=== PATIENT | female | born 1935 | race African-American/Black ===

== ENCOUNTER 2023-09-08 20:13 | Inpatient (IN) | payer MEDICARE, OTHER, SELFPAY ==
--- NOTE | ~2023-09-08 | CT_ITS ---
Clinical Indication: Hypoxia CT Scan of the Chest with Contrast: Technique: Contiguous sections were acquired throughout the chest after intravenous administration of 100 cc of Omnipaque 350. Dose reduction technique was used on this scan by utilizing automated expos ure control and iterative reconstruction technique. The dose-length product (DLP) was 181.01 mGy-cm. Findings: There is no evidence of any significant mediastinal, hilar or axillary lymphadenopathy. There is no f illing defect in the pulmonary arterial tree to suggest pulmonary embolus. There is no evidence of ao rtic aneurysm. There is no evidence of pleural or pericardial effusion. The lungs are clear, aside from mild dependent atelectatic changes. Images through the upper abdomen reveal no abnormalities. Impression: No evidence of pulmonary embolus. Mild dependent atelectatic changes. Reviewed, dictated and finalized at [facility]. Impression: No evidence of pulmonary embolus. Mild dependent atelectatic changes.
--- NOTE | ~2023-09-08 | XR_ITS ---
Portable chest x-ray Comparison: None Clinical History: Hypoxia Findings: Central congestive change present. Possible minimal bibasilar pulmonary edema. Cardiomedi astinal silhouette is prominent, status post CABG, valve replacement, with pacemaker device. Bones an d soft tissues are unremarkable. Impression: Central congestive change and possible minimal bibasilar pulmonary edema. Cardiomegaly, status post CABG, valve replacement, with pacemaker device. Reviewed, dictated and finalized at [facility]. Impression: Central congestive change and possible minimal bibasilar pulmonary edema. Cardiomegaly, status post CABG, valve replacement, with pacemaker device.
--- NOTE | ~2023-09-08 | CT_ITS ---
Non-contrast CT scan of the Abdomen and Pelvis Clinical indication: Right lower quadrant pain Technique: 2.5 mm axial scans were obtained through the abdomen and pelvis without intravenous or or al contrast. Dose reduction technique was used on this scan by utilizing automated exposure control a nd iterative reconstruction technique. The dose-length product (DLP) was 348.50 mGy-cm. Findings: Images through the lung bases reveal cardiomegaly with pacemaker device. Minimal right ple ural fluid present, with mild bibasilar atelectatic change There is no evidence of renal or ureteral calculi. The kidneys and the ureters are nondilated. Right renal cysts are present. The liver, spleen, pancreas, gallbladder, and adrenals appear normal.. There are atherosclerotic calcifications of the aorta. There is also extensive atherosclerotic calcif ication of the SMA and iliac vessels. There is no evidence of bowel obstruction. There is wall thickening and mild pericolic inflammatory c hange involving the cecum and proximal ascending colon. Appendix is nondilated. Images through the pelvis were performed. There is no evidence of ascites or lymphadenopathy. Urinary bladder unremarkable. No pelvic mass seen. No ascites. Impression: Wall thickening and mild pericolic inflammatory change of the cecum and proximal ascending colon. Carmelina gnostic considerations include colitis versus neoplasm. Correlate clinically. Consider colonoscopy as indicated. Extensive atherosclerotic disease, as above. Reviewed, dictated and finalized at [facility]. Impression: Wall thickening and mild pericolic inflammatory change of the cecum and proxima l ascending colon. Diagnostic considerations include colitis versus neoplasm. C orrelate clinically. Consider colonoscopy as indicated. Extensive atherosclerotic disease, as above.
[2023-09-08 20:15] VITALS: BP 123/62; PULSE 83; RESP 18; O2SAT 93
[2023-09-08 21:20] LABS: Basophils Absolute Auto 0.1 K/mm3 (0.0-0.1); Basophils Percent Auto 0.3 % (0.2-1.2); Hematocrit 34.1 % (37.0-47.0); Hemoglobin 11.3 g/dL (12.0-15.0); Immature Granulocyte Percent A 0.4 % (0-0.5); Lymphocytes Percent Auto 4.1 % (18.3-44.2); Mean Corpuscular HGB Conc 33.1 g/dl (32-36); Mean Corpuscular Hemoglobin 26.3 pg (26-34); Mean Corpuscular Volume 79.3 fl (80-100); Mean Platelet Volume 10.1 fl (7.4-10.4); Monocytes Absolute Auto 1.6 K/mm3 (0.1-0.6); Monocytes Percent Auto 6.6 % (2.6-8.5); Neutrophils Absolute Auto 21.7 K/mm3 (1.3-6.7); Neutrophils Percent Auto 88.6 % (45.5-73.1); Nucleated Red Blood Cells Perc 0.1 % (0.0-0.2); Platelet Count Result 307 k/mm3 (150-375); Red Cell Distribution Width 19.7 % (11.5-14.5); White Blood Count 24.5 K/mm3 (4.5-10.0)
[2023-09-08 21:33] LABS: Alanine Aminotransferase 59 U/L (6-35); Albumin Level 4.3 g/dL (3.5-5.1); Alkaline Phosphatase 122 U/L (38-126); Anion Gap 15 mmol/L (4-12); Aspartate Amino Transferase 52 U/L (14-36); Bilirubin,Total 0.7 mg/dL (0.2-1.3); Blood Urea Nitrogen 41 mg/dL (7-17); Calcium 9.9 mg/dL (8.4-10.2); Carbon Dioxide 21 mmol/L (22-30); Chloride 100 mmol/L (98-107); Estimated Glomerular Filt Rate 37; Glucose 121 mg/dL (65-110); Lipase 24 U/L (23-300); Potassium 4.5 mmol/L (3.4-5.0); Sodium 136 mmol/L (137-145)
[2023-09-08 21:38] LABS: Platelet Estimate Adequate (Adequate)
[2023-09-08 21:39] LABS: Ovalocytes 1+; Target Cells 1+
[2023-09-08 21:40] LABS: Schistocytes Rare
[2023-09-08 21:43] LABS: Appearance Urine Turbid (Clear); Bacteria Urine 4+ /hpf; Bilirubin Urine Negative (Negative); Blood Urine Negative (Negative); Color Urine Yellow (Yellow); Glucose Urine UA Negative (Negative); Ketones Urine Negative (Negative); Leukocyte Esterase Ur 2+ LEU/UL (Negative); Need Manual Microscopic Reviewed; Nitrate Urine Negative (Negative); Non Pathogenic Casts >20; Protein Urine Trace mg/dL (Negative); Specific Grav Ur 1.021 (1.001-1.035); Squamous Epithelial Cell Urine Many /hpf (Few); WBC Urine >100 /hpf (0-3)
[2023-09-08 21:44] LABS: Add Urine Microscopic? YES
--- NOTE | 2023-09-08 22:45 | ED.ABDPAIN ---
HPI - Abdominal Pain General Chief Complaint: Abdominal Pain Stated Complaint: abd pain/abnormal labs Time Seen by Provider: 09/08/23 20:20 History of Present Illness HPI narrative: 79-year-old female presents to the emergency department for evaluation from [facility] for evaluation for tachycardia and hypotension, patient has been complaining of right lower quadrant pain for the last 2 days. Patient had outpatient labs showing leukocytosis. Related Data Home Medications Medication Instructions Recorded Confirmed acetaminophen 500 mg tablet 1,000 mg PO Q6H PRN Pain (Scale 09/03/23 09/09/23 Score 1-3) aspirin 81 mg tablet,delayed 81 mg PO BID 09/03/23 09/09/23 release atorvastatin 40 mg tablet 40 mg PO DAILY 09/03/23 09/09/23 duloxetine 20 mg capsule,delayed 20 mg PO DAILY 09/03/23 09/09/23 release furosemide 20 mg tablet 20 mg PO DAILY 09/03/23 09/09/23 hydralazine 100 mg tablet 100 mg PO BID 09/03/23 09/09/23 levothyroxine 100 mcg tablet 100 mcg PO DAILY 09/03/23 09/09/23 (Synthroid) methocarbamol 500 mg tablet 500 mg PO TID 09/03/23 09/09/23 metoprolol succinate 50 mg 50 mg PO DAILY 09/03/23 09/09/23 tablet,extended release 24 hr oxycodone 5 mg tablet 5 mg PO Q4H PRN Pain (Scale Score 09/03/23 09/09/23 7-10) sennosides 8.6 mg-docusate sodium 2 tablet PO BID 09/03/23 09/09/23 50 mg tablet (Senna-S) Allergies Allergy/AdvReac Type Severity Reaction Status Date / Time No Known Allergies Allergy Verified 09/10/23 13:37 Review of Systems Review of Systems: All systems reviewed & are unremarkable except as noted in HPI and below PMFSH Past Medical History Medical History (Updated 09/11/23 @ 18:32 by Candido Bryan MD) Ischemic colitis Nausea and vomiting in adult Social History Social History Smoking status: Never smoker Tobacco type: cigarettes Second hand tobacco smoke exposure: No Alcohol intake: never Substance use: never Substance use type: does not use Do You Feel Safe in your Home?: Yes Lack of Transportation: No Lack of Food: Never True Current Housing: I Have Housing Concerned About Future Housing: No Difficulty Paying Gas/Electric Bills: No Difficulty Paying for Meds: No Currently Unemployed: No Education: High School Diploma/GED Difficulty w/ Childcare or Family Care: No Spiritual care concerns: No Exam Narrative: APPEARANCE: Well appearing, no pain, no distress, well-nourished. HEAD: normocephalic, atraumatic. EYES: PERRLA/EOMI, conjunctivae clear. NOSE: Normal no drainage EARS:TMS clear with good light reflex. THROAT: Pharynx clear, no exudate. NECK: Supple. No adenopathy, no masses. RESPIRATORY: Airway patent, respirations nonlabored. Clear to auscultation bilaterally, no rales, rhonchi, wheezing. CARDIOVASCULAR: Regular rate and rhythm without murmurs rubs or gallops. ABDOMINAL: Right lower quadrant tenderness to palpate MUSCULOSKELETAL: Moves all extremities. Strength/ROM intact, No edema, No calf tenderness. NEURO: Alert. Cranial nerves II through XII intact. Grossly intact SKIN: Warm, dry. Normal Color Course Vital Signs Vital signs: Vital Signs Pulse Rate 83 09/08/23 20:15 Respiratory Rate 18 09/08/23 20:15 Blood Pressure 123/62 09/08/23 20:15 Pulse Oximetry 93 09/08/23 20:15 Oxygen Delivery Room Air 09/08/23 20:15 Temperature 98.0 F 09/13/23 12:00 Pulse Rate 72 09/13/23 12:00 Respiratory Rate 16 09/13/23 12:00 Blood Pressure 142/64 H 09/13/23 12:00 Pulse Oximetry 97 09/13/23 12:00 Oxygen Delivery Nasal Cannula 09/13/23 09:20 Oxygen Flow Rate 2 09/13/23 09:20 Fraction of Inspired Oxygen 28 09/10/23 19:40 MDM - Abdominal Pain MDM Narrative Medical decision making narrative: 88-year-old female presents emergency department for evaluation for low abdominal pain. Patient had an elevated
[2023-09-08 22:47] VITALS: BP 99/58; PULSE 86; RESP 14; O2SAT 96
[2023-09-08 23:09] VITALS: BP 96/51; PULSE 90; RESP 14; O2SAT 84
[2023-09-08 23:10] VITALS: O2SAT 92
[2023-09-08 23:23] VITALS: BP 103/60
[2023-09-09] VITALS (15 sets, daily range): BP systolic 78–118; BP diastolic 41–61; PULSE 70–91; RESP 16–26; TEMP 36.6–36.9; O2SAT 91–99; BMI 28.3
--- NOTE | 2023-09-09 01:11 | PM.IMHP ---
H&P: HPI History of Present Illness Date/Time: 09/09/23 01:11 Chief Complaint: low blood pressure Narrative: This is an 87 yo female with PMHx significant for hypertension, hypothyroidism, right lower extremity bimalleolar fracture status post splinting. Patient comes from rehabilitation due to tachycardia and hypotension and right lower quadrant pain. Patient here denies any complaint, denies fevers, rigors, chills, nausea, vomiting, constipation, diarrhea, night sweats, shortness of breath, cough, sputum production, no pain. Preliminary workup was significant for CBC with a leukocyte count of 24,000 urinalysis showed greater than 100 WBCs per high-power field preliminary report on CT showed area of colitis. Non-contrast CT scan of the Abdomen and Pelvis Clinical indication: Right lower quadrant pain Technique: 2.5 mm axial scans were obtained through the abdomen and pelvis without intravenous or oral contrast. Dose reduction technique was used on this scan by utilizing automated exposure control and iterative reconstruction technique. The dose-length product (DLP) was 348.50 mGy-cm. Findings: Images through the lung bases reveal cardiomegaly with pacemaker device. Minimal right pleural fluid present, with mild bibasilar atelectatic change There is no evidence of renal or ureteral calculi. The kidneys and the ureters are nondilated. Right renal cysts are present. The liver, spleen, pancreas, gallbladder, and adrenals appear normal.. There are atherosclerotic calcifications of the aorta. There is also extensive atherosclerotic calcification of the SMA and iliac vessels. There is no evidence of bowel obstruction. There is wall thickening and mild pericolic inflammatory change involving the cecum and proximal ascending colon. Appendix is nondilated. Images through the pelvis were performed. There is no evidence of ascites or lymphadenopathy. Urinary bladder unremarkable. No pelvic mass seen. No ascites. Impression: Wall thickening and mild pericolic inflammatory change of the cecum and proximal ascending colon. Diagnostic considerations include colitis versus neoplasm. Correlate clinically. Consider colonoscopy as indicated. Extensive atherosclerotic disease, as above. Portable chest x-ray Comparison: None Clinical History: Hypoxia Findings: Central congestive change present. Possible minimal bibasilar pulmonary edema. Cardiomediastinal silhouette is prominent, status post CABG, valve replacement, with pacemaker device. Bones and soft tissues are unremarkable. Impression: Central congestive change and possible minimal bibasilar pulmonary edema. Cardiomegaly, status post CABG, valve replacement, with pacemaker device. Review of Systems Review of Systems: Hypotension and tachycardia however patient denies any complaints Constitutional: Constitutional: Denies chills, Denies fever(s), Denies night sweats and Denies poor appetite Eyes: Eyes: Denies change in vision ENT: Denies dysphagia and Denies odynophagia Cardiovascular: Cardiovascular: Denies chest pain Respiratory: Respiratory: Denies chest congestion and Denies cough Gastrointestinal: Gastrointestinal: Reports abdominal pain (Right lower quadrant), Denies diarrhea, Denies nausea and Denies vomiting Genitourinary: Genitourinary: Denies dysuria Musculoskeletal: Musculoskeletal: Reports other (Right lower extremity ankle fracture) Integumentary/Breasts: Skin/Breast: Denies rash Neurologic: Denies focal weakness and Denies Sensory deficit (Neuro) Psychiatric: Psychiatric: Reports no additional psychiatric complaints and Reports as per HPI Endocrine: Endocrine: Denies cold intolerance, Denies heat intolerance, Denies polyphagia, Denies polydipsia, Denies polyuria and Denies palpitations Hematologic/Lymphatic: Hematologic/Lymphatic: Reports no additional hematologic/lymphatic complaints and Reports as per HPI Allergic/Immunologic: Allergic/Imm
[2023-09-09] MEDS: PIPERACILLIN/TAZ 2.25G/NS 50ML 2.25 GM/50 ML BAG IVPB ×3 (01:20→17:11)
[2023-09-09] MEDS: SODIUM CHLORIDE 0.9% IV 1,000 ML 999 ML IV CONT ×3 (01:52→10:55)
[2023-09-09] MEDS: LEVOTHYROXINE SODIUM 100 MCG TABLET PO (06:10)
--- NOTE | 2023-09-09 07:47 | PM.IMPN ---
Progress Note: A&P Assessment and Plan (1) Acute respiratory failure with hypoxia: Code(s): J96.01 - Acute respiratory failure with hypoxia Status: Acute Assessment and Plan: On arrival to the ED from [facility] patients SpO2 84%. Placed on 2L NC. Baseline room air. Vitals remain stable. - Chest XR: Central congestive change and possible minimal bibasilar pulmonary edema. Cardiomegaly, status post CABG, valve replacement, with pacemaker device. - Likely related to patient receiving sepsis bolus. Will hold on diuresing patient as she has been hypotensive and is going to undergo bowel prep for colonoscopy in the morning. - Monitor SpO2, wean as tolerated to maintain SpO2 > 90% (2) Sepsis: Code(s): A41.9 - Sepsis, unspecified organism Status: Acute Assessment and Plan: Meets SIRS criteria: leukocytosis 24.5, hypotension 96/51, new O2 requirement, FELY - lactic acid: 0.8, however this was after receiving antibiotics and fluids - 30 mL/kg = 1911 ml. 2L NS bolus given. - suspected source: UTI and colitis - blood cultures drawn on 09/08: pending - UA: turbid appearance, 2+ leukocytes, negative nitrates, 3-5 RBC, >100 WBC, many squamous epithelial cells, 4+ bacteria. Possible contaminant given the squamous epithelial cells. - Urine culture: pending - CXR: Central congestive change and possible minimal bibasilar pulmonary edema. Cardiomegaly, status post CABG, valve replacement, with pacemaker device. - CT abdomen/pelvis: Wall thickening and mild pericolic inflammatory change of the cecum and proximal ascending colon. Diagnostic considerations include colitis versus neoplasm. Correlate clinically. Consider colonoscopy as indicated. - Monitor I&Os, vital signs, neuro status and patient is a fall risk - Monitor serum electrolytes, CBC, WBC, temperature curve and follow cultures (3) FELY (acute kidney injury): Code(s): N17.9 - Acute kidney failure, unspecified Status: Acute Assessment and Plan: BUN/Cr 41/1.6 on admission. Baseline unknown, however last admission BUN/Cr 24/1.2. Likely related to underlying infection. - CT abdomen/pelvis: There is no evidence of renal or ureteral calculi. The kidneys and the ureters are nondilated. Right renal cysts are present. - Avoid nephrotoxic medications, continue to hold patients furosemide 20 mg daily - Renally dose medications - Monitor vitals, I/O, patient is fall risk - Monitor CBC and electrolytes (4) Acute UTI: Code(s): N39.0 - Urinary tract infection, site not specified Status: Acute Assessment and Plan: - UA: turbid appearance, 2+ leukocytes, negative nitrates, 3-5 RBC, >100 WBC, many squamous epithelial cells, 4+ bacteria. Possible contaminant given the squamous epithelial cells. - UC obtained on 09/07: pending - No previous micro to be reviewed - started on zosyn 09/08 (5) Colitis: Code(s): K52.9 - Noninfective gastroenteritis and colitis, unspecified Status: Acute Assessment and Plan: Patient endorsing RLQ pain for 2 days prior to admission. - CT abdomen/pelvis: Wall thickening and mild pericolic inflammatory change of the cecum and proximal ascending colon. Diagnostic considerations include colitis versus neoplasm. Correlate clinically. Consider colonoscopy as indicated. - GI consulted Will schedule patient for colonoscopy tomorrow if possible to further evaluate RLQ pain and CT findings of cecal and ascending colon wall thickening and inflammation Bowel prep to start this evening Clear liquid diet today and NPO at midnight Continue supportive care with pain management and antibiotics (6) HTN (hypertension): Code(s): I10 - Essential (primary) hypertension Status: Acute Assessment and Plan: Chronic. During admission patient has been hypotensive likely related to her infection. - Holding hydralazine 100 mg BID, metoprolol 50 mg daily and lasix 20 mg daily - Monitor, will restart medicatio
[2023-09-09] MEDS: ASPIRIN 81 MG ENTERIC TABLET PO ×2 (08:07→17:11)
[2023-09-09] MEDS: ATORVASTATIN 40 MG TABLET PO (08:07)
[2023-09-09] MEDS: DULoxetine HCL 20 MG CAPSULE.DR PO (08:07)
[2023-09-09] MEDS: SENNA/DOCUSATE SODIUM TABLET 2 TAB PO ×2 (08:07→17:10)
[2023-09-09] MEDS: methocarbamoL 500 MG TABLET PO ×3 (08:11→17:10)
[2023-09-09] MEDS: METOPROLOL SUCCINATE EXT REL 50 MG TABCR PO (08:14)
[2023-09-09 08:37] LABS: Basophils Absolute Auto 0.1 K/mm3 (0.0-0.1); Basophils Percent Auto 0.3 % (0.2-1.2); Hematocrit 28.2 % (37.0-47.0); Hemoglobin 9.6 g/dL (12.0-15.0); Immature Granulocyte Absolute 0.14 K/mm3 (0.00-0.031); Immature Granulocyte Percent A 0.6 % (0-0.5); Lymphocytes Absolute Auto 0.98 K/mm3 (0.9-3.2); Mean Corpuscular Hemoglobin 26.7 pg (26-34); Mean Corpuscular Volume 78.3 fl (80-100); Mean Platelet Volume 10.5 fl (7.4-10.4); Monocytes Absolute Auto 1.7 K/mm3 (0.1-0.6); Monocytes Percent Auto 6.8 % (2.6-8.5); Neutrophils Absolute Auto 21.7 K/mm3 (1.3-6.7); Neutrophils Percent Auto 88.3 % (45.5-73.1); Platelet Count Result 273 k/mm3 (150-375); White Blood Count 24.6 K/mm3 (4.5-10.0)
[2023-09-09 08:46] LABS: Lactic Acid Reflex 0.8 mmol/L (0.7-2.0)
[2023-09-09 08:50] LABS: Alanine Aminotransferase 49 U/L (6-35); Albumin Level 3.4 g/dL (3.5-5.1); Alkaline Phosphatase 109 U/L (38-126); Anion Gap 9 mmol/L (4-12); Aspartate Amino Transferase 41 U/L (14-36); Bilirubin,Total 0.7 mg/dL (0.2-1.3); Blood Urea Nitrogen 44 mg/dL (7-17); Calcium 9.3 mg/dL (8.4-10.2); Carbon Dioxide 22 mmol/L (22-30); Chloride 103 mmol/L (98-107); Estimated Glomerular Filt Rate 40; Glucose 104 mg/dL (65-110); Potassium 4.5 mmol/L (3.4-5.0); Sodium 134 mmol/L (137-145)
[2023-09-09] MEDS: ENOXAPARIN 30 MG/0.3 ML SYRINGE SUB-Q (08:50)
[2023-09-09 09:00] LABS: Hypochromasia 1+; Microcytosis 1+ (NORMAL); Platelet Estimate Adequate (Adequate); Schistocytes None Seen; Target Cells 1+
--- NOTE | 2023-09-09 09:38 | P.CONGI_ITS ---
I, Candido Bryan MD, have provided a substantive portion of the care of this patient and discussed the patient with my Nurse Practitioner. I have reviewed any new relevant radiographic and laboratory results including medications. I agree with her documentation as noted below.?I personally performed the medical decision making and much of the history and exam for this encounter. briefly she is here after new onset of rlq pain with leukocytosis, on arrival was hypotensive, found to have UTI and treated as sepsis, CT scan showed possible rt sided colitis but can not rule out malignancy, also had nausea. Started on abx, BP improved, will proceed with colonoscopy to assess Assessment and Plan Assessment and plan (1) RLQ abdominal pain: Code(s): R10.31 - Right lower quadrant pain Status: Acute (2) Abnormal digestive system diagnostic imaging: Code(s): R93.3 - Abnormal findings on diagnostic imaging of other parts of digestive tract Status: Acute (3) Colitis: Code(s): K52.9 - Noninfective gastroenteritis and colitis, unspecified Status: Acute (4) Leukocytosis: Qualifiers: Leukocytosis type: unspecified Qualified Code(s): D72.829 - Elevated white blood cell count, unspecified Code(s): D72.829 - Elevated white blood cell count, unspecified Status: Acute (5) Elevated liver transaminase level: Code(s): R74.01 - Elevation of levels of liver transaminase levels Status: Acute (6) Anemia: Qualifiers: Anemia type: unspecified type Qualified Code(s): D64.9 - Anemia, unspecified Code(s): D64.9 - Anemia, unspecified Status: Acute Plan 1. Right lower quadrant pain/ Abnormal imaging digestive-colitis: Patient has never had a colonoscopy. Family history negative for CRC or IBD. CT abdomen/pelvis without contrast on 09/08/2023 showed wall thickening and mild pericolic inflammatory change of the cecum and proximal ascending colon, with diagnostic considerations including colitis versus neoplasm. Patient reports right lower quadrant pain that started on Saturday (2 days ago), described as a deep inside soreness that is worse with palpation, no change in pain with bowel movements. Patient has not had a bowel movement since being in the hospital. At home patient was using daily stool softeners and having a bowel movement every 1-3 days. * Will schedule patient for colonoscopy tomorrow if possible to further evaluate RLQ pain and CT findings of cecal and ascending colon wall thickening and inflammation * Bowel prep to start this evening * Clear liquid diet today and NPO at midnight * Continue supportive care with pain management and antibiotics 2) Anemia: Patient with microcytic anemia with H&H trending down slowly since yesterday with Hgb 11.6-->9.6. No signs of active GI bleeding to include hematemesis, hematochezia, or melena. patient was on aspirin 81 mg daily prior to admission but denies any other NSAID or anticoagulant use. * colonoscopy tomorrow * primary care team to continue monitoring H&H and transfuse as needed to keep HGB >7 * iron panel, ferritin, B12, and folate ordered. If low supplement 3) Leukocytosis: Likely multifactorial given UTI, sepsis, colitis. WBC's today 24.6. Patient afebrile. * primary care team to continue monitoring in treating * continue antibiotics 4) Elevated liver transaminase: Bilirubin and alkaline phosphatase normal. Transaminase with mild elevation showing AST 41 and ALT 49. No abnormal liver findings on imaging. * continue to monitor,
--- NOTE | 2023-09-09 09:38 | WPDGICN ---
Assessment and Plan Assessment and plan (1) RLQ abdominal pain: Code(s): R10.31 - Right lower quadrant pain Status: Acute (2) Abnormal digestive system diagnostic imaging: Code(s): R93.3 - Abnormal findings on diagnostic imaging of other parts of digestive tract Status: Acute (3) Colitis: Code(s): K52.9 - Noninfective gastroenteritis and colitis, unspecified Status: Acute (4) Leukocytosis: Qualifiers: Leukocytosis type: unspecified Qualified Code(s): D72.829 - Elevated white blood cell count, unspecified Code(s): D72.829 - Elevated white blood cell count, unspecified Status: Acute (5) Elevated liver transaminase level: Code(s): R74.01 - Elevation of levels of liver transaminase levels Status: Acute (6) Anemia: Qualifiers: Anemia type: unspecified type Qualified Code(s): D64.9 - Anemia, unspecified Code(s): D64.9 - Anemia, unspecified Status: Acute Plan 1. Right lower quadrant pain/ Abnormal imaging digestive-colitis: Patient has never had a colonoscopy. Family history negative for CRC or IBD. CT abdomen/pelvis without contrast on 09/08/2023 showed wall thickening and mild pericolic inflammatory change of the cecum and proximal ascending colon, with diagnostic considerations including colitis versus neoplasm. Patient reports right lower quadrant pain that started on Saturday (2 days ago), described as a deep inside soreness that is worse with palpation, no change in pain with bowel movements. Patient has not had a bowel movement since being in the hospital. At home patient was using daily stool softeners and having a bowel movement every 1-3 days. Will schedule patient for colonoscopy tomorrow if possible to further evaluate RLQ pain and CT findings of cecal and ascending colon wall thickening and inflammation Bowel prep to start this evening Clear liquid diet today and NPO at midnight Continue supportive care with pain management and antibiotics 2) Anemia: Patient with microcytic anemia with H&H trending down slowly since yesterday with Hgb 11.6-->9.6. No signs of active GI bleeding to include hematemesis, hematochezia, or melena. patient was on aspirin 81 mg daily prior to admission but denies any other NSAID or anticoagulant use. colonoscopy tomorrow primary care team to continue monitoring H&H and transfuse as needed to keep HGB >7 iron panel, ferritin, B12, and folate ordered. If low supplement 3) Leukocytosis: Likely multifactorial given UTI, sepsis, colitis. WBC's today 24.6. Patient afebrile. primary care team to continue monitoring in treating continue antibiotics 4) Elevated liver transaminase: Bilirubin and alkaline phosphatase normal. Transaminase with mild elevation showing AST 41 and ALT 49. No abnormal liver findings on imaging. continue to monitor, if LFTs increase will order a liver workup Thank you very much for allowing me to share in the care of this very nice patient. This report may have been done utilizing a voice recognition system. Attempts have been made to correct errors. However, there may be uncorrected grammatical, spelling, and recognition errors present. GI Consult Note Consult date/time: 09/09/23 09:38 Reason for consult: Colitis HPI: Alberta Givens is a 87 year old female with a past medical surgical history of hypertension, hypothyroidism, right lower extremity bimalleolar fracture status post splinting she presented to the ER room 09/07/2023 with complaints of right lower quadrant pain. GI consulted for colitis. Patient comes from rehabilitation due to tachycardia and hypotension and right lower quadrant pain. Patient reports right lower quadrant pain started on Saturday. She describes the pain as a deep inside soreness that is generally painful but gets worse when you touch it. Patient denies any change in pain with bowel movement. Denies any nausea,
[2023-09-09 10:13] LABS: Iron 18 ug/dL (37-170)
[2023-09-09 10:22] LABS: Percent Iron Saturation 7 % (20-50)
[2023-09-09] MEDS: BISACODYL 5 MG TABLET EC 20 MG PO (10:35)
--- NOTE | 2023-09-09 10:50 | PC.NURSE ---
Left message for provider- patient blood pressure 80/41 automatic cuff and 78/50 manually. Awaiting orders
[2023-09-09 11:26] LABS: Folic Acid > 20.0 ng/mL (2.76->20); Vitamin B12 > 1000.0 pg/mL (239-931)
[2023-09-09] MEDS: polyethylene glycoL 3350 238 GM BOTTLE PO (17:13)
[2023-09-09] MEDS: MORPHINE SULFATE (*CRX) 2 MG/ML INJ IV PUSH (20:56)
[2023-09-09] MEDS: ONDANSETRON INJ 4 MG/2 ML VIAL IV PUSH (20:56)
[2023-09-09] MEDS: oxyCODONE HCL (*CRX) 5 MG TAB IR PO (21:43)
[2023-09-09] MEDS: ACETAMINOPHEN 500 MG TABLET 1000 MG PO (21:43)
[2023-09-10] VITALS (18 sets, daily range): BP systolic 101–166; BP diastolic 52–94; PULSE 84–95; RESP 15–25; TEMP 36–36.8; O2SAT 92–100
[2023-09-10] MEDS: PIPERACILLIN/TAZ 2.25G/NS 50ML 2.25 GM/50 ML BAG IVPB ×3 (01:00→17:20)
[2023-09-10 05:09] LABS: Basophils Percent Auto 0.1 % (0.2-1.2); Eosinophils Percent Auto 0.1 % (0-4.4); Hematocrit 28.1 % (37.0-47.0); Hemoglobin 9.3 g/dL (12.0-15.0); Immature Granulocyte Absolute 0.15 K/mm3 (0.00-0.031); Immature Granulocyte Percent A 0.7 % (0-0.5); Lymphocytes Absolute Auto 0.98 K/mm3 (0.9-3.2); Lymphocytes Percent Auto 4.7 % (18.3-44.2); Mean Corpuscular HGB Conc 33.1 g/dl (32-36); Mean Corpuscular Hemoglobin 26.5 pg (26-34); Mean Corpuscular Volume 80.1 fl (80-100); Mean Platelet Volume 10.1 fl (7.4-10.4); Monocytes Absolute Auto 1.3 K/mm3 (0.1-0.6); Monocytes Percent Auto 6.1 % (2.6-8.5); Neutrophils Absolute Auto 18.4 K/mm3 (1.3-6.7); Neutrophils Percent Auto 88.3 % (45.5-73.1); Platelet Count Result 254 k/mm3 (150-375); Red Blood Count 3.51 M/mm3 (4.2-5.4); Red Cell Distribution Width 19.3 % (11.5-14.5); White Blood Count 20.9 K/mm3 (4.5-10.0)
[2023-09-10 05:21] LABS: Alanine Aminotransferase 66 U/L (6-35); Albumin Level 3.2 g/dL (3.5-5.1); Alkaline Phosphatase 168 U/L (38-126); Anion Gap 7 mmol/L (4-12); Aspartate Amino Transferase 65 U/L (14-36); Bilirubin,Total 0.7 mg/dL (0.2-1.3); Blood Urea Nitrogen 35 mg/dL (7-17); Calcium 8.9 mg/dL (8.4-10.2); Carbon Dioxide 19 mmol/L (22-30); Chloride 107 mmol/L (98-107); Estimated Glomerular Filt Rate 43; Glucose 136 mg/dL (65-110); Potassium 3.8 mmol/L (3.4-5.0); Sodium 133 mmol/L (137-145)
[2023-09-10 05:32] LABS: Platelet Estimate Increased (Adequate)
[2023-09-10 05:33] LABS: Poikilocytosis 1+
[2023-09-10 05:34] LABS: Anisocytosis 1+; Burr Cells 1+; Hypochromasia 1+; Ovalocytes 1+; Polychromasia 1+; Schistocytes Rare; Target Cells 1+
[2023-09-10] MEDS: MAGNESIUM CITRATE 300 ML BTL PO (06:21)
[2023-09-10] MEDS: LEVOTHYROXINE SODIUM 100 MCG TABLET PO (06:21)
--- NOTE | 2023-09-10 07:15 | PM.IMPN ---
Progress Note: A&P Assessment and Plan (1) Acute respiratory failure with hypoxia: Code(s): J96.01 - Acute respiratory failure with hypoxia Status: Acute Assessment and Plan: On arrival to the ED from [facility] patients SpO2 84%. Placed on 2L NC. Baseline room air. Vitals remain stable. - Chest XR: Central congestive change and possible minimal bibasilar pulmonary edema. Cardiomegaly, status post CABG, valve replacement, with pacemaker device. - Likely related to patient receiving sepsis bolus. Patients blood pressure remains stable. Given lasix 40 mg IV x1. - Monitor SpO2, wean as tolerated to maintain SpO2 > 90% (2) Sepsis: Code(s): A41.9 - Sepsis, unspecified organism Status: Acute Assessment and Plan: Meets SIRS criteria: leukocytosis 24.5, hypotension 96/51, new O2 requirement, FELY - lactic acid: 0.8, however this was after receiving antibiotics and fluids - 30 mL/kg = 1911 ml. 2L NS bolus given. - suspected source: UTI and colitis - blood cultures drawn on 09/08: NGTD - UA: turbid appearance, 2+ leukocytes, negative nitrates, 3-5 RBC, >100 WBC, many squamous epithelial cells, 4+ bacteria. Possible contaminant given the squamous epithelial cells. - Urine culture: pending - CXR: Central congestive change and possible minimal bibasilar pulmonary edema. Cardiomegaly, status post CABG, valve replacement, with pacemaker device. - CT abdomen/pelvis: Wall thickening and mild pericolic inflammatory change of the cecum and proximal ascending colon. Diagnostic considerations include colitis versus neoplasm. Correlate clinically. Consider colonoscopy as indicated. - Monitor I&Os, vital signs, neuro status and patient is a fall risk - Monitor serum electrolytes, CBC, WBC, temperature curve and follow cultures (3) FELY (acute kidney injury): Code(s): N17.9 - Acute kidney failure, unspecified Status: Acute Assessment and Plan: BUN/Cr 41/1.6 on admission. Baseline unknown, however last admission BUN/Cr 24/1.2. Likely related to underlying infection. - CT abdomen/pelvis: There is no evidence of renal or ureteral calculi. The kidneys and the ureters are nondilated. Right renal cysts are present. - Avoid nephrotoxic medications, continue to hold patients furosemide 20 mg daily - Renally dose medications - Monitor vitals, I/O, patient is fall risk - Monitor CBC and electrolytes (4) Acute UTI: Code(s): N39.0 - Urinary tract infection, site not specified Status: Acute Assessment and Plan: - UA: turbid appearance, 2+ leukocytes, negative nitrates, 3-5 RBC, >100 WBC, many squamous epithelial cells, 4+ bacteria. Possible contaminant given the squamous epithelial cells. - UC obtained on 09/07: pending - No previous micro to be reviewed - started on zosyn 09/08 (5) Colitis: Code(s): K52.9 - Noninfective gastroenteritis and colitis, unspecified Status: Acute Assessment and Plan: Patient endorsing RLQ pain for 2 days prior to admission. - CT abdomen/pelvis: Wall thickening and mild pericolic inflammatory change of the cecum and proximal ascending colon. Diagnostic considerations include colitis versus neoplasm. Correlate clinically. Consider colonoscopy as indicated. - GI consulted Patient scheduled for colonoscopy today NPO for colonoscopy Continue supportive care with pain management and antibiotics (6) HTN (hypertension): Code(s): I10 - Essential (primary) hypertension Status: Acute Assessment and Plan: Chronic. During admission patient has been hypotensive likely related to her infection. - Holding hydralazine 100 mg BID, metoprolol 50 mg daily and lasix 20 mg daily - Monitor, will restart medications as appropriate (7) Elevated transaminase level: Code(s): R74.01 - Elevation of levels of liver transaminase levels Status: Acute Assessment and Plan: AST and ALT mildly elevated. Bilirubin and alk phos WNL. Benign exam. No
--- NOTE | 2023-09-10 07:55 | SUR.PREOP ---
Spoke with Dr. Ivy regarding pt's history of heart valve replacement and the need for antibiotics. Doctor said since she is on Zoysn currently she does not need any additional antibiotics.
[2023-09-10] MEDS: ENOXAPARIN 30 MG/0.3 ML SYRINGE SUB-Q (08:36)
--- NOTE | 2023-09-10 13:40 | PC.NURSE ---
Patient off unit to GI lab via stretcher. Report given to Adrianna WILKINSON.
[2023-09-10] MEDS: LACTATED RINGERS 1,000 ML 150 ML IV CONT (13:45)
--- NOTE | 2023-09-10 13:55 | PC.NURSE ---
Returned from GI lab via stretcher. Report received from Sandie WILKINSON. No patient complaints at this time.
--- NOTE | 2023-09-10 13:55 | WPDANESEPPF ---
Anes - Initial Pre Proc Eval Procedure: Operation Date: 09/10/23 16:00 Proposed Procedures p Colonoscopy - Candido Bryan MD Date/Time: 09/10/23 13:55 Surgeon: Sweetie Lawler PA-C Pre Op Diagnosis: UTI, colitis Patient Data Age: 87 Gender: F Height: 1.5 m Weight: 63.7 kg Last Vital Signs Temp 96.8 F L 09/10/23 13:40 Pulse 85 09/10/23 13:40 Resp 20 09/10/23 13:40 BP 125/59 L 09/10/23 13:40 Pulse Ox 95 09/10/23 13:40 O2 Del Method Nasal Cannula 09/10/23 13:40 O2 Flow Rate 2 09/10/23 13:40 FiO2 28 09/09/23 19:59 Allergies Allergy/AdvReac Type Severity Reaction Status Date / Time No Known Allergies Allergy Verified 09/10/23 13:37 Home Medications Medication Instructions Recorded Confirmed Type acetaminophen 500 mg tablet 1,000 mg PO Q6H PRN Pain (Scale 09/03/23 09/09/23 History Score 1-3) aspirin 81 mg tablet,delayed 81 mg PO BID 09/03/23 09/09/23 History release atorvastatin 40 mg tablet 40 mg PO DAILY 09/03/23 09/09/23 History duloxetine 20 mg capsule,delayed 20 mg PO DAILY 09/03/23 09/09/23 History release furosemide 20 mg tablet 20 mg PO DAILY 09/03/23 09/09/23 History hydralazine 100 mg tablet 100 mg PO BID 09/03/23 09/09/23 History levothyroxine 100 mcg tablet 100 mcg PO DAILY 09/03/23 09/09/23 History (Synthroid) methocarbamol 500 mg tablet 500 mg PO TID 09/03/23 09/09/23 History metoprolol succinate 50 mg 50 mg PO DAILY 09/03/23 09/09/23 History tablet,extended release 24 hr oxycodone 5 mg tablet 5 mg PO Q4H PRN Pain (Scale Score 09/03/23 09/09/23 History 7-10) sennosides 8.6 mg-docusate sodium 2 tablet PO BID 09/03/23 09/09/23 History 50 mg tablet (Senna-S) Laboratory Tests 09/10/23 04:49 WBC 20.9 H K/mm3 (4.5-10.0) RBC 3.51 L M/mm3 (4.2-5.4) Hgb 9.3 L g/dL (12.0-15.0) Hct 28.1 L % (37.0-47.0) MCV 80.1 fl (80-100) MCH 26.5 pg (26-34) MCHC 33.1 g/dl (32-36) RDW 19.3 H % (11.5-14.5) Plt Count 254 k/mm3 (150-375) MPV 10.1 fl (7.4-10.4) Immature Gran % (Auto) 0.7 H % (0-0.5) Neut % (Auto) 88.3 H % (45.5-73.1) Lymph % (Auto) 4.7 L % (18.3-44.2) [place] % (Auto) 6.1 % (2.6-8.5) Eos % (Auto) 0.1 % (0-4.4) Baso % (Auto) 0.1 L % (0.2-1.2) Lymph # (Auto) 0.98 K/mm3 (0.9-3.2) [place] # (Auto) 1.3 H K/mm3 (0.1-0.6) Eos # (Auto) 0.0 K/mm3 (0-0.3) Baso # (Auto) 0.0 K/mm3 (0.0-0.1) Abs Immat Gran (auto) 0.15 H K/mm3 (0.00-0.031) Absolute Neuts (auto) 18.4 H K/mm3 (1.3-6.7) Absolute Nucleated RBC 0.000 K/mm3 (0.0-0.012) Nucleated RBC % 0.0 % (0.0-0.2) Platelet Estimate Increased (Adequate) Polychromasia 1+ Hypochromasia 1+ Poikilocytosis 1+ Anisocytosis 1+ Target Cells 1+ Ovalocytes 1+ Zoe Cells 1+ Schistocytes Rare Sodium 133 L mmol/L (137-145) Potassium 3.8 mmol/L (3.4-5.0) Chloride 107 mmol/L (98-107) Carbon Dioxide 19 L mmol/L (22-30) Anion Gap 7 mmol/L (4-12) BUN 35 H mg/dL (7-17) Creatinine 1.40 H mg/dL (0.7-1.0) Estim Creat Clear Calc Not Reportable Estimated GFR 43 L (59 - ) Glucose 136 H mg/dL (65-110) Calcium 8.9 mg/dL (8.4-10.2) Total Bilirubin 0.7 mg/dL (0.2-1.3) AST 65 H U/L (14-36) ALT 66 H U/L (6-35) Alkaline Phosphatase 168 H U/L (38-126) Total Protein 6.0 L g/dL (6.3-8.2) Albumin 3.2 L g/dL (3.5-5.1) Patient hx anesthesia problems: none Family hx anesthesia problems: none Results Review: All pre-operative results and documents have been reviewed as part of the pre-operative evaluation. [facility] Social History Social History Smoking status: Never smoker Tobacco type: cigarettes Second hand tobacco smoke exposure: No Alcohol intake: never
[2023-09-10] MEDS: ONDANSETRON INJ 4 MG/2 ML VIAL IV PUSH ×2 (14:30→20:21)
--- NOTE | 2023-09-10 14:32 | SUR.PREOP ---
Patient feeling nauseated in pre-op. Patient has 4mg IV push Zofran ordered in APR. Dr. Cherry okay to give PRN zofran.
[2023-09-10] MEDS: ASPIRIN 81 MG ENTERIC TABLET PO (17:21)
[2023-09-10] MEDS: methocarbamoL 500 MG TABLET PO (17:21)
[2023-09-10] MEDS: MORPHINE SULFATE (*CRX) 2 MG/ML INJ IV PUSH (20:21)
[2023-09-10] MEDS: oxyCODONE HCL (*CRX) 5 MG TAB IR PO (20:58)
[2023-09-11] VITALS (7 sets, daily range): BP systolic 140–163; BP diastolic 60–80; PULSE 78–100; RESP 16–20; TEMP 36.3–36.6; O2SAT 95–100
[2023-09-11] MEDS: PIPERACILLIN/TAZ 2.25G/NS 50ML 2.25 GM/50 ML BAG IVPB ×3 (00:53→18:30)
[2023-09-11] MEDS: oxyCODONE HCL (*CRX) 5 MG TAB IR PO (00:54)
[2023-09-11 08:15] LABS: Hematocrit 30.1 % (37.0-47.0); Hemoglobin 10.3 g/dL (12.0-15.0); Mean Corpuscular HGB Conc 34.2 g/dl (32-36); Mean Corpuscular Hemoglobin 26.5 pg (26-34); Mean Corpuscular Volume 77.6 fl (80-100); Mean Platelet Volume 10.5 fl (7.4-10.4); Platelet Count Result 304 k/mm3 (150-375); Red Blood Count 3.88 M/mm3 (4.2-5.4); Red Cell Distribution Width 19.3 % (11.5-14.5); White Blood Count 18.1 K/mm3 (4.5-10.0)
[2023-09-11 08:21] LABS: Alanine Aminotransferase 57 U/L (6-35); Albumin Level 3.5 g/dL (3.5-5.1); Alkaline Phosphatase 181 U/L (38-126); Anion Gap 9 mmol/L (4-12); Aspartate Amino Transferase 41 U/L (14-36); Bilirubin,Total 0.7 mg/dL (0.2-1.3); Blood Urea Nitrogen 36 mg/dL (7-17); Calcium 9.9 mg/dL (8.4-10.2); Carbon Dioxide 27 mmol/L (22-30); Chloride 103 mmol/L (98-107); Estimated Glomerular Filt Rate 43; Glucose 125 mg/dL (65-110); Magnesium 2.5 mg/dL (1.6-2.3); Potassium 3.7 mmol/L (3.4-5.0); Sodium 139 mmol/L (137-145)
[2023-09-11] MEDS: ONDANSETRON INJ 4 MG/2 ML VIAL IV PUSH (08:38)
[2023-09-11] MEDS: FUROSEMIDE INJ 40 MG/4 ML VIAL IV PUSH (08:38)
[2023-09-11] MEDS: methocarbamoL 500 MG TABLET PO ×3 (08:39→18:30)
[2023-09-11] MEDS: ACETAMINOPHEN 500 MG TABLET 1000 MG PO (08:39)
[2023-09-11] MEDS: ASPIRIN 81 MG ENTERIC TABLET PO ×2 (08:39→18:30)
[2023-09-11] MEDS: ATORVASTATIN 40 MG TABLET PO (08:39)
[2023-09-11] MEDS: METOPROLOL SUCCINATE EXT REL 50 MG TABCR PO (08:39)
[2023-09-11] MEDS: ENOXAPARIN 30 MG/0.3 ML SYRINGE SUB-Q (08:40)
[2023-09-11] MEDS: DULoxetine HCL 20 MG CAPSULE.DR PO (08:40)
[2023-09-11] MEDS: FERROUS SULFATE 325 MG TABLET DR PO (08:40)
[2023-09-11] MEDS: SODIUM CHLORIDE 0.9% IV 1,000 ML 75 ML IV CONT (09:27)
--- NOTE | 2023-09-11 12:26 | P.PNIM_ITS ---
Progress Note: A&P Assessment and Plan (1) Acute respiratory failure with hypoxia: Code(s): J96.01 - Acute respiratory failure with hypoxia Status: Acute (2) Sepsis: Code(s): A41.9 - Sepsis, unspecified organism Status: Acute (3) FELY (acute kidney injury): Code(s): N17.9 - Acute kidney failure, unspecified Status: Acute (4) Acute UTI: Code(s): N39.0 - Urinary tract infection, site not specified Status: Acute (5) Colitis: Code(s): K52.9 - Noninfective gastroenteritis and colitis, unspecified Status: Acute (6) HTN (hypertension): Code(s): I10 - Essential (primary) hypertension Status: Acute (7) Elevated transaminase level: Code(s): R74.01 - Elevation of levels of liver transaminase levels Status: Acute (8) Anemia: Qualifiers: Anemia type: unspecified type Qualified Code(s): D64.9 - Anemia, unspecified Code(s): D64.9 - Anemia, unspecified Status: Acute (9) Bimalleolar fracture of right ankle: Code(s): S82.841A - Displaced bimalleolar fracture of right lower leg, initial encounter for closed fracture Status: Acute Plan Acute respiratory failure with hypoxia-Resolved * On arrival to the ED from [facility] SpO2 84%. Placed on 2L NC. Baseline room air. Vitals remain stable. * Chest XR: Central congestive change and possible minimal bibasilar pulmonary edema. Cardiomegaly, status post CABG, valve replacement, with pacemaker device. * Likely related to patient receiving sepsis bolus. Patients blood pressure remains stable. Given lasix 40 mg IV x1. * Monitor SpO2, wean as tolerated to maintain SpO2 > 90% Sepsis without septic shock secondary to colitis * Meets SIRS criteria: leukocytosis 24.5, hypotension 96/51, new O2 requirement, FELY * lactic acid: 0.8, however this was after receiving antibiotics and fluids * 30 mL/kg = 1911 ml. 2L NS bolus given. * suspected source: colitis * blood cultures drawn on 09/08: NGTD * UA: turbid appearance, 2+ leukocytes, negative nitrates, 3-5 RBC, >100 WBC, many squamous epithelial cells, 4+ bacteria. Possible contaminant given the squamous epithelial cells. * Urine culture: pending * CXR: Central congestive change and possible minimal bibasilar pulmonary edema. Cardiomegaly, status post CABG, valve replacement, with pacemaker device. * CT abdomen/pelvis: Wall thickening and mild pericolic inflammatory change of the cecum and proximal ascending colon. Diagnostic considerations include colitis versus neoplasm. Correlate clinically. Consider colonoscopy as indicated. * Monitor I&Os, vital signs, neuro status and patient is a fall risk * Monitor serum electrolytes, CBC, WBC, temperature curve and follow cultures Ischemic colitis * GI was consulted * Colonoscopy showing ischemic colitis * Continue with Zosyn IV * Monitor for downtrending WBC * Advance diet when tolerated currently NPO with ice chips * Monitor for worsening sepsis * Consult surgery if no improvement with conservative therapy Bimalleolar fracture of right ankle * Previous fracture * Came from rehab [facility] * Patient to remain nonweightbearing to RLE * PT/OT * Pain control Transaminitis * Trending flat will continue to monitor * No abnormal liver findings on imaging * Hepatitis panel pending HX HTN: Initially hypotensive, resume home meds as tolerated Anemia: Stable Code status: Full code per patient DVT prophylaxis: Lovenox Stress ulcer prophyla
--- NOTE | 2023-09-11 12:26 | PM.IMPN ---
Progress Note: A&P Assessment and Plan (1) Acute respiratory failure with hypoxia: Code(s): J96.01 - Acute respiratory failure with hypoxia Status: Acute (2) Sepsis: Code(s): A41.9 - Sepsis, unspecified organism Status: Acute (3) FELY (acute kidney injury): Code(s): N17.9 - Acute kidney failure, unspecified Status: Acute (4) Acute UTI: Code(s): N39.0 - Urinary tract infection, site not specified Status: Acute (5) Colitis: Code(s): K52.9 - Noninfective gastroenteritis and colitis, unspecified Status: Acute (6) HTN (hypertension): Code(s): I10 - Essential (primary) hypertension Status: Acute (7) Elevated transaminase level: Code(s): R74.01 - Elevation of levels of liver transaminase levels Status: Acute (8) Anemia: Qualifiers: Anemia type: unspecified type Qualified Code(s): D64.9 - Anemia, unspecified Code(s): D64.9 - Anemia, unspecified Status: Acute (9) Bimalleolar fracture of right ankle: Code(s): S82.841A - Displaced bimalleolar fracture of right lower leg, initial encounter for closed fracture Status: Acute Plan Acute respiratory failure with hypoxia-Resolved On arrival to the ED from [facility] SpO2 84%. Placed on 2L NC. Baseline room air. Vitals remain stable. Chest XR: Central congestive change and possible minimal bibasilar pulmonary edema. Cardiomegaly, status post CABG, valve replacement, with pacemaker device. Likely related to patient receiving sepsis bolus. Patients blood pressure remains stable. Given lasix 40 mg IV x1. Monitor SpO2, wean as tolerated to maintain SpO2 > 90% Sepsis without septic shock secondary to colitis Meets SIRS criteria: leukocytosis 24.5, hypotension 96/51, new O2 requirement, FELY lactic acid: 0.8, however this was after receiving antibiotics and fluids 30 mL/kg = 1911 ml. 2L NS bolus given. suspected source: colitis blood cultures drawn on 09/08: NGTD UA: turbid appearance, 2+ leukocytes, negative nitrates, 3-5 RBC, >100 WBC, many squamous epithelial cells, 4+ bacteria. Possible contaminant given the squamous epithelial cells. Urine culture: pending CXR: Central congestive change and possible minimal bibasilar pulmonary edema. Cardiomegaly, status post CABG, valve replacement, with pacemaker device. CT abdomen/pelvis: Wall thickening and mild pericolic inflammatory change of the cecum and proximal ascending colon. Diagnostic considerations include colitis versus neoplasm. Correlate clinically. Consider colonoscopy as indicated. Monitor I&Os, vital signs, neuro status and patient is a fall risk Monitor serum electrolytes, CBC, WBC, temperature curve and follow cultures Ischemic colitis GI was consulted Colonoscopy showing ischemic colitis Continue with Zosyn IV Monitor for downtrending WBC Advance diet when tolerated currently NPO with ice chips Monitor for worsening sepsis Consult surgery if no improvement with conservative therapy Bimalleolar fracture of right ankle Previous fracture Came from rehab [facility] Patient to remain nonweightbearing to RLE PT/OT Pain control Transaminitis Trending flat will continue to monitor No abnormal liver findings on imaging Hepatitis panel pending HX HTN: Initially hypotensive, resume home meds as tolerated Anemia: Stable Code status: Full code per patient DVT prophylaxis: Lovenox Stress ulcer prophylaxis: Protonix 40 daily PT/OT notes: PT/OT RLE nonweightbearing Disposition: Patient continues admission ischemic colitis sepsis will continue to treat with conservative therapy to include IV antibiotics currently NPO for bowel rest will attempt to advance diet when patient can tolerate. Discharge plan back to [place] for continued rehab therapy for right ankle fracture. Time Spent With Patient Time with patient: 15 - 25 minutes Subjective Date/time seen: 09/10
[2023-09-11 13:38] LABS: Hepatitis B Surface Antigen Negative (Negative)
[2023-09-11 13:44] LABS: HAV RESULT Negative (Negative); Hepatitis B Core IgM Result Negative (Negative)
[2023-09-11 13:56] LABS: Hepatitis C Virus Antibody Negative (Negative)
--- NOTE | 2023-09-11 18:28 | WPDGIPROGNO ---
Progress Note: A&P Assessment and Plan (1) Ischemic colitis: Code(s): K55.9 - Vascular disorder of intestine, unspecified Status: Acute Assessment and Plan: pending biopsies npo for now, start diet tomorrow if better on iv antibiotics (2) Abnormal digestive system diagnostic imaging: Code(s): R93.3 - Abnormal findings on diagnostic imaging of other parts of digestive tract Status: Acute (3) Leukocytosis: Qualifiers: Leukocytosis type: unspecified Qualified Code(s): D72.829 - Elevated white blood cell count, unspecified Code(s): D72.829 - Elevated white blood cell count, unspecified Status: Acute Assessment and Plan: on abx, here with severe colitis and sepsis (4) Sepsis: Code(s): A41.9 - Sepsis, unspecified organism Status: Acute (5) FELY (acute kidney injury): Code(s): N17.9 - Acute kidney failure, unspecified Status: Acute Assessment and Plan: monitoring (6) Acute UTI: Code(s): N39.0 - Urinary tract infection, site not specified Status: Acute (7) Nausea and vomiting in adult: Code(s): R11.2 - Nausea with vomiting, unspecified Status: Acute Subjective Date/time seen: 09/11/23 18:28 Interval history: colonoscopy yesterday suggestive of ischemic colitis in cecum/proximal ascending pain is better but emesis after eating, she is back to npo status Review of Systems Review of Systems: All systems reviewed & are unremarkable except as noted in HPI and below Exam Const: General: no acute distress Other: frail elderly HENMT: Face/Nose/Sinus: Normal nares present Eyes: Sclera: sclerae normal Neck: Neck: supple Resp: Effort & Inspection: normal respiratory effort Cardio: Rate: regular rate GI: GI Palp: Yes Soft to palpation and Yes Tenderness to palpation present (GI) (mild ttp in rlq, no rebound) Auscultation: normal bowel sounds Skin: General skin exam: normal color Neuro: Speech: normal speech Motor exam (neuro): 5/5 motor strength present throughout Extrem: Other: boot in Rt leg Psych: Mental Status: mental status grossly normal Objective Data Vital Signs Vital Signs: Vital Signs - 24 hr 09/10/23 19:40 09/10/23 20:00 09/10/23 23:45 Temperature 97.6 F 97.7 F Pulse Rate 91 90 Respiratory Rate 18 16 Blood Pressure 166/73 H 166/82 H Pulse Oximetry 92 99 93 Oxygen Delivery Nasal Cannula Oxygen Flow Rate 2 Fraction of Inspired Oxygen 28 09/11/23 04:00 09/11/23 08:35 09/11/23 08:39 Temperature 97.9 F Pulse Rate 86 84 Respiratory Rate 18 Blood Pressure 163/78 H Pulse Oximetry 95 96 Oxygen Delivery Nasal Cannula Oxygen Flow Rate 2 Fraction of Inspired Oxygen 09/11/23 08:35 09/11/23 08:00 09/11/23 12:00 Temperature 97.6 F 97.6 F Pulse Rate 100 89 Respiratory Rate 16 16 Blood Pressure 145/68 H 140/66 Pulse Oximetry 96 100 100 Oxygen Delivery Nasal Cannula Oxygen Flow Rate 2 Fraction of Inspired Oxygen 09/11/23 13:36 09/11/23 14:22 09/11/23 16:00 Temperature 97.6 F Pulse Rate 82 Respiratory Rate 17 Blood Pressure 142/60 H Pulse Oximetry 99 Oxygen Delivery Nasal Cannula Nasal Cannula Oxygen Flow Rate 2 2 Fraction of Inspired Oxygen Intake/Output Intake/Output: Intake & Output 09/08/23 09/09/23 09/10/23 09/11/23 23:59 23:59 23:59 23:59 Intake Total 760.0 707.5 340 Output Total 500 Balance 760.0 207.5 340 Meds/Results Medications: Active Medications Generic Name Dose Route Start Last Admin Trade Name Freq PRN Reason Stop Dose Admin Acetaminophen 1,000 mg 09/09/23 05:04 09/11/23 08:39 Acetaminophen 500 Mg Tablet PO 1,000 mg Q6H PRN Administration Pain (Scale Score 1-3) Aspirin 81 mg 09/09/23 09:00 09/11/23 08:39 Aspirin 81 Mg Enteric Tablet PO 81 mg BID DEBBIE Administration Atorvastatin Calcium 40 mg 09/09/23 09:00 09/11/23 0
[2023-09-12] VITALS (8 sets, daily range): BP systolic 117–154; BP diastolic 54–71; PULSE 69–79; RESP 16–20; TEMP 36.1–37.2; O2SAT 97–100
[2023-09-12] MEDS: SODIUM CHLORIDE 0.9% IV 1,000 ML 75 ML IV CONT (00:52)
[2023-09-12] MEDS: PIPERACILLIN/TAZ 2.25G/NS 50ML 2.25 GM/50 ML BAG IVPB ×3 (00:52→16:42)
[2023-09-12 05:18] LABS: Basophils Absolute Auto 0.1 K/mm3 (0.0-0.1); Basophils Percent Auto 0.4 % (0.2-1.2); Eosinophils Absolute Auto 0.1 K/mm3 (0-0.3); Hematocrit 26.7 % (37.0-47.0); Hemoglobin 8.8 g/dL (12.0-15.0); Immature Granulocyte Absolute 0.14 K/mm3 (0.00-0.031); Immature Granulocyte Percent A 1.2 % (0-0.5); Lymphocytes Absolute Auto 1.35 K/mm3 (0.9-3.2); Lymphocytes Percent Auto 11.3 % (18.3-44.2); Mean Corpuscular Hemoglobin 25.8 pg (26-34); Mean Corpuscular Volume 78.3 fl (80-100); Monocytes Absolute Auto 0.8 K/mm3 (0.1-0.6); Monocytes Percent Auto 6.8 % (2.6-8.5); Neutrophils Absolute Auto 9.5 K/mm3 (1.3-6.7); Neutrophils Percent Auto 79.3 % (45.5-73.1); Nucleated Red Blood Cells Perc 0.3 % (0.0-0.2); Platelet Count Result 296 k/mm3 (150-375); Red Blood Count 3.41 M/mm3 (4.2-5.4)
[2023-09-12 05:39] LABS: Alanine Aminotransferase 39 U/L (6-35); Albumin Level 2.8 g/dL (3.5-5.1); Alkaline Phosphatase 127 U/L (38-126); Anion Gap 6 mmol/L (4-12); Aspartate Amino Transferase 33 U/L (14-36); Bilirubin,Total 0.6 mg/dL (0.2-1.3); Blood Urea Nitrogen 33 mg/dL (7-17); Carbon Dioxide 26 mmol/L (22-30); Chloride 112 mmol/L (98-107); Estimated Glomerular Filt Rate 40; Glucose 84 mg/dL (65-110); Magnesium 2.5 mg/dL (1.6-2.3); Potassium 4.1 mmol/L (3.4-5.0); Sodium 144 mmol/L (137-145)
[2023-09-12] MEDS: LEVOTHYROXINE SODIUM 100 MCG TABLET PO (05:59)
[2023-09-12] MEDS: ENOXAPARIN 30 MG/0.3 ML SYRINGE SUB-Q (08:57)
[2023-09-12 08:58] LABS: Iron 53 ug/dL (37-170)
[2023-09-12 09:13] LABS: Percent Iron Saturation 24 % (20-50)
[2023-09-12] MEDS: METOPROLOL SUCCINATE EXT REL 50 MG TABCR PO (09:53)
[2023-09-12] MEDS: methocarbamoL 500 MG TABLET PO ×3 (09:53→16:42)
[2023-09-12] MEDS: DULoxetine HCL 20 MG CAPSULE.DR PO (09:53)
[2023-09-12] MEDS: ONDANSETRON INJ 4 MG/2 ML VIAL IV PUSH (09:53)
[2023-09-12] MEDS: FERROUS SULFATE 325 MG TABLET DR PO (09:53)
[2023-09-12] MEDS: ATORVASTATIN 40 MG TABLET PO (09:53)
[2023-09-12] MEDS: ASPIRIN 81 MG ENTERIC TABLET PO ×2 (09:53→16:42)
--- NOTE | 2023-09-12 12:40 | P.PNIM_ITS ---
Progress Note: A&P Assessment and Plan (1) Acute respiratory failure with hypoxia: Code(s): J96.01 - Acute respiratory failure with hypoxia Status: Acute (2) Sepsis: Code(s): A41.9 - Sepsis, unspecified organism Status: Acute (3) FELY (acute kidney injury): Code(s): N17.9 - Acute kidney failure, unspecified Status: Acute (4) Acute UTI: Code(s): N39.0 - Urinary tract infection, site not specified Status: Acute (5) Colitis: Code(s): K52.9 - Noninfective gastroenteritis and colitis, unspecified Status: Acute (6) HTN (hypertension): Code(s): I10 - Essential (primary) hypertension Status: Acute (7) Elevated transaminase level: Code(s): R74.01 - Elevation of levels of liver transaminase levels Status: Acute (8) Anemia: Qualifiers: Anemia type: unspecified type Qualified Code(s): D64.9 - Anemia, unspecified Code(s): D64.9 - Anemia, unspecified Status: Acute (9) Bimalleolar fracture of right ankle: Code(s): S82.841A - Displaced bimalleolar fracture of right lower leg, initial encounter for closed fracture Status: Acute Plan Acute respiratory failure with hypoxia-Resolved * On arrival to the ED from [facility] SpO2 84%. Placed on 2L NC. Baseline room air. Vitals remain stable. * Chest XR: Central congestive change and possible minimal bibasilar pulmonary edema. Cardiomegaly, status post CABG, valve replacement, with pacemaker device. * Likely related to patient receiving sepsis bolus. Patients blood pressure remains stable. Given lasix 40 mg IV x1. * Monitor SpO2, wean as tolerated to maintain SpO2 > 90% * Still on 2L * will get CTA to r/o PE due to recent fracture history Sepsis without septic shock secondary to colitis-RESOLVED * Meets SIRS criteria: leukocytosis 24.5, hypotension 96/51, new O2 requirement, FELY * lactic acid: 0.8, however this was after receiving antibiotics and fluids * 30 mL/kg = 1911 ml. 2L NS bolus given. * suspected source: colitis * blood cultures drawn on 09/08: NGTD * UA: turbid appearance, 2+ leukocytes, negative nitrates, 3-5 RBC, >100 WBC, many squamous epithelial cells, 4+ bacteria. Possible contaminant given the squamous epithelial cells. * Urine culture: pending * CXR: Central congestive change and possible minimal bibasilar pulmonary edema. Cardiomegaly, status post CABG, valve replacement, with pacemaker device. * CT abdomen/pelvis: Wall thickening and mild pericolic inflammatory change of the cecum and proximal ascending colon. Diagnostic considerations include colitis versus neoplasm. Correlate clinically. Consider colonoscopy as indicated. * Monitor I&Os, vital signs, neuro status and patient is a fall risk * Monitor serum electrolytes, CBC, WBC, temperature curve and follow cultures Ischemic colitis-Improving * GI was consulted * Colonoscopy showing ischemic colitis * Continue with Zosyn IV * Monitor for downtrending WBC * Advance diet when tolerated currently NPO with ice chips * Monitor for worsening sepsis * Consult surgery if no improvement with conservative therapy 09/12/2023: * WBC improving * advance to clear liquid Bimalleolar fracture of right ankle * Previous fracture * Came from re[facility] * Patient to remain nonweightbearing to RLE * PT/OT * Pain control * ASA DVT prophylaxis Transaminitis * Trending flat will continue to monitor * No abnormal liver findings on imaging * Hepatitis panel pending HX HTN: Initially hypotensive, r
--- NOTE | 2023-09-12 12:40 | PM.IMPN ---
Progress Note: A&P Assessment and Plan (1) Acute respiratory failure with hypoxia: Code(s): J96.01 - Acute respiratory failure with hypoxia Status: Acute (2) Sepsis: Code(s): A41.9 - Sepsis, unspecified organism Status: Acute (3) FELY (acute kidney injury): Code(s): N17.9 - Acute kidney failure, unspecified Status: Acute (4) Acute UTI: Code(s): N39.0 - Urinary tract infection, site not specified Status: Acute (5) Colitis: Code(s): K52.9 - Noninfective gastroenteritis and colitis, unspecified Status: Acute (6) HTN (hypertension): Code(s): I10 - Essential (primary) hypertension Status: Acute (7) Elevated transaminase level: Code(s): R74.01 - Elevation of levels of liver transaminase levels Status: Acute (8) Anemia: Qualifiers: Anemia type: unspecified type Qualified Code(s): D64.9 - Anemia, unspecified Code(s): D64.9 - Anemia, unspecified Status: Acute (9) Bimalleolar fracture of right ankle: Code(s): S82.841A - Displaced bimalleolar fracture of right lower leg, initial encounter for closed fracture Status: Acute Plan Acute respiratory failure with hypoxia-Resolved On arrival to the ED from [facility] SpO2 84%. Placed on 2L NC. Baseline room air. Vitals remain stable. Chest XR: Central congestive change and possible minimal bibasilar pulmonary edema. Cardiomegaly, status post CABG, valve replacement, with pacemaker device. Likely related to patient receiving sepsis bolus. Patients blood pressure remains stable. Given lasix 40 mg IV x1. Monitor SpO2, wean as tolerated to maintain SpO2 > 90% Still on 2L will get CTA to r/o PE due to recent fracture history Sepsis without septic shock secondary to colitis-RESOLVED Meets SIRS criteria: leukocytosis 24.5, hypotension 96/51, new O2 requirement, FELY lactic acid: 0.8, however this was after receiving antibiotics and fluids 30 mL/kg = 1911 ml. 2L NS bolus given. suspected source: colitis blood cultures drawn on 09/08: NGTD UA: turbid appearance, 2+ leukocytes, negative nitrates, 3-5 RBC, >100 WBC, many squamous epithelial cells, 4+ bacteria. Possible contaminant given the squamous epithelial cells. Urine culture: pending CXR: Central congestive change and possible minimal bibasilar pulmonary edema. Cardiomegaly, status post CABG, valve replacement, with pacemaker device. CT abdomen/pelvis: Wall thickening and mild pericolic inflammatory change of the cecum and proximal ascending colon. Diagnostic considerations include colitis versus neoplasm. Correlate clinically. Consider colonoscopy as indicated. Monitor I&Os, vital signs, neuro status and patient is a fall risk Monitor serum electrolytes, CBC, WBC, temperature curve and follow cultures Ischemic colitis-Improving GI was consulted Colonoscopy showing ischemic colitis Continue with Zosyn IV Monitor for downtrending WBC Advance diet when tolerated currently NPO with ice chips Monitor for worsening sepsis Consult surgery if no improvement with conservative therapy 09/12/2023: WBC improving advance to clear liquid Bimalleolar fracture of right ankle Previous fracture Came from rehab [facility] Patient to remain nonweightbearing to RLE PT/OT Pain control ASA DVT prophylaxis Transaminitis Trending flat will continue to monitor No abnormal liver findings on imaging Hepatitis panel pending HX HTN: Initially hypotensive, resume home meds as tolerated Anemia: Stable Code status: Full code per patient DVT prophylaxis: Lovenox Stress ulcer prophylaxis: Protonix 40 daily PT/OT notes: PT/OT RLE nonweightbearing Disposition: Patient continues admission ischemic colitis sepsis will continue to treat with conservative therapy to include IV antibiotics advanced to clear liquid. CTA pending to r/o PE due to continued hypoxia. Discharge plan back to [facility] for
[2023-09-12 14:00] LABS: Toxigenic C. Diff NEGATIVE (NEGATIVE)
--- NOTE | 2023-09-12 15:54 | WPDGIPROGNO ---
Progress Note: A&P Assessment and Plan (1) Ischemic colitis: Code(s): K55.9 - Vascular disorder of intestine, unspecified Status: Acute Assessment and Plan: bx confirmed diagnosis, no malignancy clinically better, on iv abx and leukocytosis trending down continue with liquid diet for now, advance tomorrow based on clinical course (2) Abnormal digestive system diagnostic imaging: Code(s): R93.3 - Abnormal findings on diagnostic imaging of other parts of digestive tract Status: Acute Assessment and Plan: colitis (3) Leukocytosis: Qualifiers: Leukocytosis type: unspecified Qualified Code(s): D72.829 - Elevated white blood cell count, unspecified Code(s): D72.829 - Elevated white blood cell count, unspecified Status: Acute Assessment and Plan: on abx, here with severe colitis and sepsis trending down (4) Sepsis: Code(s): A41.9 - Sepsis, unspecified organism Status: Acute Assessment and Plan: better (5) FELY (acute kidney injury): Code(s): N17.9 - Acute kidney failure, unspecified Status: Acute Assessment and Plan: creatinine stable 1.5 (6) Nausea and vomiting in adult: Code(s): R11.2 - Nausea with vomiting, unspecified Status: Acute Assessment and Plan: improved from colitis Subjective Date/time seen: 09/12/23 15:54 Interval history: feeling better today, able to tolerate liquid diet without more nausea she is in good spirits Review of Systems Review of Systems: All systems reviewed & are unremarkable except as noted in HPI and below Exam Const: General: no acute distress Other: frail elderly HENMT: Face/Nose/Sinus: Normal nares present Eyes: Sclera: sclerae normal Neck: Neck: supple Resp: Effort & Inspection: normal respiratory effort Cardio: Rate: regular rate GI: GI Palp: Yes Soft to palpation and Yes Tenderness to palpation present (GI) (minimal ttp in rlq, no rebound, more comfortable) Auscultation: normal bowel sounds Skin: General skin exam: normal color Neuro: Speech: normal speech Motor exam (neuro): 5/5 motor strength present throughout Extrem: Other: boot in Rt leg Psych: Mental Status: mental status grossly normal Objective Data Vital Signs Vital Signs: Vital Signs - 24 hr 09/11/23 16:00 09/11/23 20:00 09/11/23 20:00 Temperature 97.6 F 97.3 F L Pulse Rate 82 78 Respiratory Rate 17 20 Blood Pressure 142/60 H 152/80 H Pulse Oximetry 99 99 98 Oxygen Delivery Nasal Cannula Oxygen Flow Rate 2 09/12/23 00:00 09/12/23 05:00 09/12/23 08:50 Temperature 97.3 F L 97.0 F L Pulse Rate 79 72 Respiratory Rate 20 20 Blood Pressure 151/64 H 117/54 L Pulse Oximetry 99 98 98 Oxygen Delivery Nasal Cannula Oxygen Flow Rate 2 09/12/23 09:53 09/12/23 10:09 09/12/23 14:44 Temperature 97.7 F 97.6 F Pulse Rate 72 70 71 Respiratory Rate 16 16 Blood Pressure 154/63 H 140/59 L Pulse Oximetry 99 100 Oxygen Delivery Oxygen Flow Rate Intake/Output Intake/Output: Intake & Output 09/09/23 09/10/23 09/11/23 09/12/23 23:59 23:59 23:59 23:59 Intake Total 760.0 707.5 1390 540 Output Total 500 4 7 Balance 760.0 207.5 1386 533 Meds/Results Medications: Active Medications Generic Name Dose Route Start Last Admin Trade Name Freq PRN Reason Stop Dose Admin Acetaminophen 1,000 mg 09/09/23 05:04 09/11/23 08:39 Acetaminophen 500 Mg Tablet PO 1,000 mg Q6H PRN Administration Pain (Scale Score 1-3) Aspirin 81 mg 09/09/23 09:00 09/12/23 09:53 Aspirin 81 Mg Enteric Tablet PO 81 mg BID DEBBIE Administration Atorvastatin Calcium 40 mg 09/09/23 09:00 09/12/23 09:53 Atorvastatin 40 Mg Tablet PO 40 mg DAILY DEBBIE Administration Duloxetine HCl 20 mg 09/09/23 09:00 09/12/23 09:53 Duloxetine Hcl 20 Mg Capsule.Dr PO 20 mg DAILY DEBBIE Administration Enoxaparin Sodium 3
[2023-09-13] VITALS (10 sets, daily range): BP systolic 142–152; BP diastolic 60–78; PULSE 67–78; RESP 16–18; TEMP 36.5–36.9; O2SAT 96–100
[2023-09-13] MEDS: PIPERACILLIN/TAZ 2.25G/NS 50ML 2.25 GM/50 ML BAG IVPB ×3 (00:16→16:56)
[2023-09-13 05:05] LABS: Basophils Absolute Auto 0.1 K/mm3 (0.0-0.1); Basophils Percent Auto 0.9 % (0.2-1.2); Eosinophils Absolute Auto 0.2 K/mm3 (0-0.3); Eosinophils Percent Auto 1.5 % (0-4.4); Hematocrit 28.6 % (37.0-47.0); Immature Granulocyte Absolute 0.37 K/mm3 (0.00-0.031); Immature Granulocyte Percent A 3.1 % (0-0.5); Lymphocytes Percent Auto 16.2 % (18.3-44.2); Mean Corpuscular HGB Conc 31.5 g/dl (32-36); Mean Corpuscular Hemoglobin 25.6 pg (26-34); Mean Corpuscular Volume 81.3 fl (80-100); Mean Platelet Volume 10.1 fl (7.4-10.4); Monocytes Percent Auto 8.2 % (2.6-8.5); Neutrophils Absolute Auto 8.2 K/mm3 (1.3-6.7); Neutrophils Percent Auto 70.1 % (45.5-73.1); Nucleated Red Blood Cells Perc 0.7 % (0.0-0.2); Platelet Count Result 330 k/mm3 (150-375); Red Blood Count 3.52 M/mm3 (4.2-5.4); White Blood Count 11.8 K/mm3 (4.5-10.0)
[2023-09-13 05:09] LABS: Alanine Aminotransferase 31 U/L (6-35); Alkaline Phosphatase 113 U/L (38-126); Anion Gap 8 mmol/L (4-12); Aspartate Amino Transferase 25 U/L (14-36); Bilirubin,Total 0.5 mg/dL (0.2-1.3); Blood Urea Nitrogen 21 mg/dL (7-17); Carbon Dioxide 21 mmol/L (22-30); Chloride 111 mmol/L (98-107); Estimated Glomerular Filt Rate 51; Glucose 89 mg/dL (65-110); Magnesium 2.5 mg/dL (1.6-2.3); Potassium 3.6 mmol/L (3.4-5.0); Sodium 140 mmol/L (137-145)
[2023-09-13] MEDS: LEVOTHYROXINE SODIUM 100 MCG TABLET PO (06:00)
--- NOTE | 2023-09-13 07:14 | WPDGIPROGNO ---
Progress Note: A&P Assessment and Plan (1) Ischemic colitis: Code(s): K55.9 - Vascular disorder of intestine, unspecified Status: Acute Assessment and Plan: bx confirmed diagnosis, no malignancy clinically better, on iv abx and leukocytosis trending down advance diet today (2) Abnormal digestive system diagnostic imaging: Code(s): R93.3 - Abnormal findings on diagnostic imaging of other parts of digestive tract Status: Acute Assessment and Plan: colitis (3) Leukocytosis: Qualifiers: Leukocytosis type: unspecified Qualified Code(s): D72.829 - Elevated white blood cell count, unspecified Code(s): D72.829 - Elevated white blood cell count, unspecified Status: Acute Assessment and Plan: on abx, here with severe colitis and sepsis trending down (4) Sepsis: Code(s): A41.9 - Sepsis, unspecified organism Status: Acute Assessment and Plan: better (5) FELY (acute kidney injury): Code(s): N17.9 - Acute kidney failure, unspecified Status: Acute Assessment and Plan: creatinine improved 1.2 (6) Nausea and vomiting in adult: Code(s): R11.2 - Nausea with vomiting, unspecified Status: Acute Assessment and Plan: resolved from colitis Subjective Date/time seen: 09/13/23 07:14 Interval history: no more nausea or pain, doing better Review of Systems Review of Systems: All systems reviewed & are unremarkable except as noted in HPI and below Exam Const: General: no acute distress Other: frail elderly HENMT: Face/Nose/Sinus: Normal nares present Eyes: Sclera: sclerae normal Neck: Neck: supple Resp: Effort & Inspection: normal respiratory effort Cardio: Rate: regular rate GI: GI Palp: Yes Soft to palpation and No Tenderness to palpation present (GI) Auscultation: normal bowel sounds Skin: General skin exam: normal color Neuro: Speech: normal speech Motor exam (neuro): 5/5 motor strength present throughout Extrem: Other: boot in Rt leg Psych: Mental Status: mental status grossly normal Objective Data Vital Signs Vital Signs: Vital Signs - 24 hr 09/12/23 08:50 09/12/23 09:53 09/12/23 10:09 Temperature 97.7 F Pulse Rate 72 70 Respiratory Rate 16 Blood Pressure 154/63 H Pulse Oximetry 98 99 Oxygen Delivery Nasal Cannula Oxygen Flow Rate 2 09/12/23 14:44 09/12/23 18:27 09/12/23 20:00 Temperature 97.6 F 97.6 F Pulse Rate 71 69 Respiratory Rate 16 16 Blood Pressure 140/59 L 151/61 H Pulse Oximetry 100 100 100 Oxygen Delivery Nasal Cannula Oxygen Flow Rate 2 09/12/23 20:00 09/13/23 00:00 09/13/23 04:00 Temperature 98.9 F 98.1 F 98.1 F Pulse Rate 72 70 72 Respiratory Rate 18 18 18 Blood Pressure 143/71 H 151/66 H 146/69 H Pulse Oximetry 97 100 96 Oxygen Delivery Oxygen Flow Rate Intake/Output Intake/Output: Intake & Output 09/10/23 09/11/23 09/12/23 09/13/23 23:59 23:59 23:59 23:59 Intake Total 707.5 1390 1200 250 Output Total 500 4 7 Balance 207.5 1386 1193 250 Meds/Results Medications: Active Medications Generic Name Dose Route Start Last Admin Trade Name Freq PRN Reason Stop Dose Admin Acetaminophen 1,000 mg 09/09/23 05:04 09/11/23 08:39 Acetaminophen 500 Mg Tablet PO 1,000 mg Q6H PRN Administration Pain (Scale Score 1-3) Aspirin 81 mg 09/09/23 09:00 09/12/23 16:42 Aspirin 81 Mg Enteric Tablet PO 81 mg BID DEBBIE Administration Atorvastatin Calcium 40 mg 09/09/23 09:00 09/12/23 09:53 Atorvastatin 40 Mg Tablet PO 40 mg DAILY DEBBIE Administration Duloxetine HCl 20 mg 09/09/23 09:00 09/12/23 09:53 Duloxetine Hcl 20 Mg Capsule.Dr PO 20 mg DAILY DEBBIE Administration Enoxaparin Sodium 30 mg 09/10/23 09:00 09/12/23 08:57 Enoxaparin 30 Mg/0.3 Ml Syringe SUB-Q 30 mg DAILY DEBBIE Administration Ferrous Sulfate 325 mg 09/10/23 09:00 09/12/23 09:
[2023-09-13] MEDS: ASPIRIN 81 MG ENTERIC TABLET PO ×2 (09:21→16:56)
[2023-09-13] MEDS: METOPROLOL SUCCINATE EXT REL 50 MG TABCR PO (09:21)
[2023-09-13] MEDS: DULoxetine HCL 20 MG CAPSULE.DR PO (09:21)
[2023-09-13] MEDS: ATORVASTATIN 40 MG TABLET PO (09:21)
[2023-09-13] MEDS: methocarbamoL 500 MG TABLET PO ×3 (09:21→16:56)
[2023-09-13] MEDS: FERROUS SULFATE 325 MG TABLET DR PO (09:21)
[2023-09-13] MEDS: ENOXAPARIN 30 MG/0.3 ML SYRINGE SUB-Q (09:23)
--- NOTE | 2023-09-13 09:29 | P.PNIM_ITS ---
Progress Note: A&P Assessment and Plan (1) Acute respiratory failure with hypoxia: Code(s): J96.01 - Acute respiratory failure with hypoxia Status: Acute (2) Sepsis: Code(s): A41.9 - Sepsis, unspecified organism Status: Acute (3) FELY (acute kidney injury): Code(s): N17.9 - Acute kidney failure, unspecified Status: Acute (4) Acute UTI: Code(s): N39.0 - Urinary tract infection, site not specified Status: Acute (5) Colitis: Code(s): K52.9 - Noninfective gastroenteritis and colitis, unspecified Status: Acute (6) HTN (hypertension): Code(s): I10 - Essential (primary) hypertension Status: Acute (7) Elevated transaminase level: Code(s): R74.01 - Elevation of levels of liver transaminase levels Status: Acute (8) Anemia: Qualifiers: Anemia type: unspecified type Qualified Code(s): D64.9 - Anemia, unspecified Code(s): D64.9 - Anemia, unspecified Status: Acute (9) Bimalleolar fracture of right ankle: Code(s): S82.841A - Displaced bimalleolar fracture of right lower leg, initial encounter for closed fracture Status: Acute Plan Acute respiratory failure with hypoxia-Resolved * On arrival to the ED from [facility] SpO2 84%. Placed on 2L NC. Baseline room air. Vitals remain stable. * Chest XR: Central congestive change and possible minimal bibasilar pulmonary edema. Cardiomegaly, status post CABG, valve replacement, with pacemaker device. * Likely related to patient receiving sepsis bolus. Patients blood pressure remains stable. Given lasix 40 mg IV x1. * Monitor SpO2, wean as tolerated to maintain SpO2 > 90% * Still on 2L * 09/11 CTA No PE, clear lungs, mild dependent atelectasis * Incentive spirometry Sepsis without septic shock secondary to colitis-RESOLVED * Meets SIRS criteria: leukocytosis 24.5, hypotension 96/51, new O2 requirement, FELY * lactic acid: 0.8, however this was after receiving antibiotics and fluids * 30 mL/kg = 1911 ml. 2L NS bolus given. * suspected source: colitis * blood cultures drawn on 09/08: NGTD * UA: turbid appearance, 2+ leukocytes, negative nitrates, 3-5 RBC, >100 WBC, many squamous epithelial cells, 4+ bacteria. Possible contaminant given the squamous epithelial cells. * Urine culture 09/07 negative (FINAL) * CXR: Central congestive change and possible minimal bibasilar pulmonary edema. Cardiomegaly, status post CABG, valve replacement, with pacemaker device. * CT abdomen/pelvis: Wall thickening and mild pericolic inflammatory change of the cecum and proximal ascending colon. Diagnostic considerations include colitis versus neoplasm. Correlate clinically. Consider colonoscopy as indicated. * Monitor I&Os, vital signs, neuro status and patient is a fall risk * Monitor serum electrolytes, CBC, WBC, temperature curve and follow cultures Ischemic colitis-Improving * WBC improving (peaked at 24.5). Had a BM today * GI was consulted * Colonoscopy showing ischemic colitis * Continue with Zosyn IV * Monitor for downtrending WBC * Advanced diet to full liquid * Monitor for worsening sepsis * Consult surgery if no improvement with conservative therapy * advanced diet to full liquids Bimalleolar fracture of right ankle * Previous fracture * Came from re[facility] * Patient to remain nonweightbearing to RLE * PT/OT. Worked with PT 09/12 * Pain control * ASA DVT prophylaxis Transaminitis * Trending up slowly, may be related to sepsis * Will continue to monitor, check in AM * No ab
--- NOTE | 2023-09-13 09:29 | PM.IMPN ---
Progress Note: A&P Assessment and Plan (1) Acute respiratory failure with hypoxia: Code(s): J96.01 - Acute respiratory failure with hypoxia Status: Acute (2) Sepsis: Code(s): A41.9 - Sepsis, unspecified organism Status: Acute (3) FELY (acute kidney injury): Code(s): N17.9 - Acute kidney failure, unspecified Status: Acute (4) Acute UTI: Code(s): N39.0 - Urinary tract infection, site not specified Status: Acute (5) Colitis: Code(s): K52.9 - Noninfective gastroenteritis and colitis, unspecified Status: Acute (6) HTN (hypertension): Code(s): I10 - Essential (primary) hypertension Status: Acute (7) Elevated transaminase level: Code(s): R74.01 - Elevation of levels of liver transaminase levels Status: Acute (8) Anemia: Qualifiers: Anemia type: unspecified type Qualified Code(s): D64.9 - Anemia, unspecified Code(s): D64.9 - Anemia, unspecified Status: Acute (9) Bimalleolar fracture of right ankle: Code(s): S82.841A - Displaced bimalleolar fracture of right lower leg, initial encounter for closed fracture Status: Acute Plan Acute respiratory failure with hypoxia-Resolved On arrival to the ED from [facility] SpO2 84%. Placed on 2L NC. Baseline room air. Vitals remain stable. Chest XR: Central congestive change and possible minimal bibasilar pulmonary edema. Cardiomegaly, status post CABG, valve replacement, with pacemaker device. Likely related to patient receiving sepsis bolus. Patients blood pressure remains stable. Given lasix 40 mg IV x1. Monitor SpO2, wean as tolerated to maintain SpO2 > 90% Still on 2L 09/11 CTA No PE, clear lungs, mild dependent atelectasis Incentive spirometry Sepsis without septic shock secondary to colitis-RESOLVED Meets SIRS criteria: leukocytosis 24.5, hypotension 96/51, new O2 requirement, FELY lactic acid: 0.8, however this was after receiving antibiotics and fluids 30 mL/kg = 1911 ml. 2L NS bolus given. suspected source: colitis blood cultures drawn on 09/08: NGTD UA: turbid appearance, 2+ leukocytes, negative nitrates, 3-5 RBC, >100 WBC, many squamous epithelial cells, 4+ bacteria. Possible contaminant given the squamous epithelial cells. Urine culture 09/07 negative (FINAL) CXR: Central congestive change and possible minimal bibasilar pulmonary edema. Cardiomegaly, status post CABG, valve replacement, with pacemaker device. CT abdomen/pelvis: Wall thickening and mild pericolic inflammatory change of the cecum and proximal ascending colon. Diagnostic considerations include colitis versus neoplasm. Correlate clinically. Consider colonoscopy as indicated. Monitor I&Os, vital signs, neuro status and patient is a fall risk Monitor serum electrolytes, CBC, WBC, temperature curve and follow cultures Ischemic colitis-Improving WBC improving (peaked at 24.5). Had a BM today GI was consulted Colonoscopy showing ischemic colitis Continue with Zosyn IV Monitor for downtrending WBC Advanced diet to full liquid Monitor for worsening sepsis Consult surgery if no improvement with conservative therapy advanced diet to full liquids Bimalleolar fracture of right ankle Previous fracture Came from re[facility] Patient to remain nonweightbearing to RLE PT/OT. Worked with PT 09/12 Pain control ASA DVT prophylaxis Transaminitis Trending up slowly, may be related to sepsis Will continue to monitor, check in AM No abnormal liver findings on imaging Hepatitis panel negative HX HTN: Initially hypotensive, resume home meds as tolerated Anemia: Stable Code status: Full code per patient DVT prophylaxis: Lovenox Stress ulcer prophylaxis: Protonix 40 daily PT/OT notes: PT/OT RLE nonweightbearing Disposition: Patient continues admission ischemic colitis sepsis will continue to treat with conservative therapy to include IV antibiotics advan
[2023-09-14] VITALS (11 sets, daily range): BP systolic 149–168; BP diastolic 55–71; PULSE 67–87; RESP 16–20; TEMP 36.4–36.9; O2SAT 93–100
[2023-09-14] MEDS: PIPERACILLIN/TAZ 2.25G/NS 50ML 2.25 GM/50 ML BAG IVPB ×3 (00:09→17:41)
[2023-09-14] MEDS: LEVOTHYROXINE SODIUM 100 MCG TABLET PO (06:08)
[2023-09-14 06:18] LABS: Basophils Absolute Auto 0.1 K/mm3 (0.0-0.1); Basophils Percent Auto 0.5 % (0.2-1.2); Eosinophils Absolute Auto 0.2 K/mm3 (0-0.3); Eosinophils Percent Auto 1.4 % (0-4.4); Hematocrit 29.3 % (37.0-47.0); Hemoglobin 9.5 g/dL (12.0-15.0); Immature Granulocyte Absolute 0.44 K/mm3 (0.00-0.031); Immature Granulocyte Percent A 3.7 % (0-0.5); Lymphocytes Absolute Auto 1.85 K/mm3 (0.9-3.2); Lymphocytes Percent Auto 15.7 % (18.3-44.2); Mean Corpuscular HGB Conc 32.4 g/dl (32-36); Mean Corpuscular Hemoglobin 25.8 pg (26-34); Mean Corpuscular Volume 79.6 fl (80-100); Mean Platelet Volume 9.5 fl (7.4-10.4); Monocytes Absolute Auto 0.8 K/mm3 (0.1-0.6); Monocytes Percent Auto 6.4 % (2.6-8.5); Neutrophils Absolute Auto 8.5 K/mm3 (1.3-6.7); Neutrophils Percent Auto 72.3 % (45.5-73.1); Platelet Count Result 315 k/mm3 (150-375); Red Blood Count 3.68 M/mm3 (4.2-5.4); Red Cell Distribution Width 19.7 % (11.5-14.5); White Blood Count 11.8 K/mm3 (4.5-10.0)
[2023-09-14 06:45] LABS: Alanine Aminotransferase 28 U/L (6-35); Albumin Level 3.2 g/dL (3.5-5.1); Alkaline Phosphatase 115 U/L (38-126); Anion Gap 6 mmol/L (4-12); Aspartate Amino Transferase 26 U/L (14-36); Bilirubin,Total 0.5 mg/dL (0.2-1.3); Blood Urea Nitrogen 13 mg/dL (7-17); Calcium 9.2 mg/dL (8.4-10.2); Carbon Dioxide 27 mmol/L (22-30); Chloride 109 mmol/L (98-107); Estimated Glomerular Filt Rate > 60; Glucose 88 mg/dL (65-110); Magnesium 2.2 mg/dL (1.6-2.3); Potassium 3.5 mmol/L (3.4-5.0); Sodium 142 mmol/L (137-145)
--- NOTE | 2023-09-14 08:06 | P.PNIM_ITS ---
Progress Note: A&P Assessment and Plan (1) Acute respiratory failure with hypoxia: Code(s): J96.01 - Acute respiratory failure with hypoxia Status: Acute (2) Sepsis: Code(s): A41.9 - Sepsis, unspecified organism Status: Acute (3) FELY (acute kidney injury): Code(s): N17.9 - Acute kidney failure, unspecified Status: Acute (4) Acute UTI: Code(s): N39.0 - Urinary tract infection, site not specified Status: Acute (5) Colitis: Code(s): K52.9 - Noninfective gastroenteritis and colitis, unspecified Status: Acute (6) HTN (hypertension): Code(s): I10 - Essential (primary) hypertension Status: Acute (7) Elevated transaminase level: Code(s): R74.01 - Elevation of levels of liver transaminase levels Status: Acute (8) Anemia: Qualifiers: Anemia type: unspecified type Qualified Code(s): D64.9 - Anemia, unspecified Code(s): D64.9 - Anemia, unspecified Status: Acute (9) Bimalleolar fracture of right ankle: Code(s): S82.841A - Displaced bimalleolar fracture of right lower leg, initial encounter for closed fracture Status: Acute Plan Acute respiratory failure with hypoxia * On arrival to the ED from [facility] SpO2 84%. Placed on 2L NC. Baseline room air. Vitals remain stable. * Chest XR: Central congestive change and possible minimal bibasilar pulmonary edema. Cardiomegaly, status post CABG, valve replacement, with pacemaker device. * Likely related to patient receiving sepsis bolus. Patients blood pressure remains stable. Given lasix 40 mg IV x1. * Monitor SpO2, wean as tolerated to maintain SpO2 > 90% * Still on 2L * 09/11 CTA No PE, clear lungs, mild dependent atelectasis * Incentive spirometry 09/14/2023: * 6-min walk study Sepsis without septic shock secondary to colitis-RESOLVED * Meets SIRS criteria: leukocytosis 24.5, hypotension 96/51, new O2 requirement, FELY * lactic acid: 0.8, however this was after receiving antibiotics and fluids * 30 mL/kg = 1911 ml. 2L NS bolus given. * suspected source: colitis * blood cultures drawn on 09/08: NGTD * UA: turbid appearance, 2+ leukocytes, negative nitrates, 3-5 RBC, >100 WBC, many squamous epithelial cells, 4+ bacteria. Possible contaminant given the squamous epithelial cells. * Urine culture 09/07 negative (FINAL) * CXR: Central congestive change and possible minimal bibasilar pulmonary edema. Cardiomegaly, status post CABG, valve replacement, with pacemaker device. * CT abdomen/pelvis: Wall thickening and mild pericolic inflammatory change of the cecum and proximal ascending colon. Diagnostic considerations include colitis versus neoplasm. Correlate clinically. Consider colonoscopy as in dicated. * Monitor I&Os, vital signs, neuro status and patient is a fall risk * Monitor serum electrolytes, CBC, WBC, temperature curve and follow cultures Ischemic colitis-Improving * WBC improving (peaked at 24.5). Had a BM 09/13/2023 * GI was consulted * Colonoscopy showing ischemic colitis * Continue with Zosyn IV * Monitor for downtrending WBC * Advanced diet to full liquid * Monitor for worsening sepsis * Consult surgery if no improvement with conservative therapy * advanced diet to full liquids 09/14/2023: * Advance to diabetic diet * WBC 11.5 Bimalleolar fracture of right ankle * Previous fracture * Came from re[facility] * Patient to remain nonweightbearing to RLE * PT/OT. Worked with PT 09/12 * Pain control * ASA DVT prophylaxis Transaminitis-RESOLVED
--- NOTE | 2023-09-14 08:06 | PM.IMPN ---
Progress Note: A&P Assessment and Plan (1) Acute respiratory failure with hypoxia: Code(s): J96.01 - Acute respiratory failure with hypoxia Status: Acute (2) Sepsis: Code(s): A41.9 - Sepsis, unspecified organism Status: Acute (3) FELY (acute kidney injury): Code(s): N17.9 - Acute kidney failure, unspecified Status: Acute (4) Acute UTI: Code(s): N39.0 - Urinary tract infection, site not specified Status: Acute (5) Colitis: Code(s): K52.9 - Noninfective gastroenteritis and colitis, unspecified Status: Acute (6) HTN (hypertension): Code(s): I10 - Essential (primary) hypertension Status: Acute (7) Elevated transaminase level: Code(s): R74.01 - Elevation of levels of liver transaminase levels Status: Acute (8) Anemia: Qualifiers: Anemia type: unspecified type Qualified Code(s): D64.9 - Anemia, unspecified Code(s): D64.9 - Anemia, unspecified Status: Acute (9) Bimalleolar fracture of right ankle: Code(s): S82.841A - Displaced bimalleolar fracture of right lower leg, initial encounter for closed fracture Status: Acute Plan Acute respiratory failure with hypoxia On arrival to the ED from [facility] SpO2 84%. Placed on 2L NC. Baseline room air. Vitals remain stable. Chest XR: Central congestive change and possible minimal bibasilar pulmonary edema. Cardiomegaly, status post CABG, valve replacement, with pacemaker device. Likely related to patient receiving sepsis bolus. Patients blood pressure remains stable. Given lasix 40 mg IV x1. Monitor SpO2, wean as tolerated to maintain SpO2 > 90% Still on 2L 09/11 CTA No PE, clear lungs, mild dependent atelectasis Incentive spirometry 09/14/2023: 6-min walk study Sepsis without septic shock secondary to colitis-RESOLVED Meets SIRS criteria: leukocytosis 24.5, hypotension 96/51, new O2 requirement, FELY lactic acid: 0.8, however this was after receiving antibiotics and fluids 30 mL/kg = 1911 ml. 2L NS bolus given. suspected source: colitis blood cultures drawn on 09/08: NGTD UA: turbid appearance, 2+ leukocytes, negative nitrates, 3-5 RBC, >100 WBC, many squamous epithelial cells, 4+ bacteria. Possible contaminant given the squamous epithelial cells. Urine culture 09/07 negative (FINAL) CXR: Central congestive change and possible minimal bibasilar pulmonary edema. Cardiomegaly, status post CABG, valve replacement, with pacemaker device. CT abdomen/pelvis: Wall thickening and mild pericolic inflammatory change of the cecum and proximal ascending colon. Diagnostic considerations include colitis versus neoplasm. Correlate clinically. Consider colonoscopy as indicated. Monitor I&Os, vital signs, neuro status and patient is a fall risk Monitor serum electrolytes, CBC, WBC, temperature curve and follow cultures Ischemic colitis-Improving WBC improving (peaked at 24.5). Had a BM 09/13/2023 GI was consulted Colonoscopy showing ischemic colitis Continue with Zosyn IV Monitor for downtrending WBC Advanced diet to full liquid Monitor for worsening sepsis Consult surgery if no improvement with conservative therapy advanced diet to full liquids 09/14/2023: Advance to diabetic diet WBC 11.5 Bimalleolar fracture of right ankle Previous fracture Came from re[facility] Patient to remain nonweightbearing to [facility] PT/OT. Worked with PT 09/12 Pain control ASA DVT prophylaxis Transaminitis-RESOLVED Trending up slowly, may be related to sepsis Will continue to monitor, check in AM No abnormal liver findings on imaging Hepatitis panel negative HX HTN: Initially hypotensive, resume home meds as tolerated Anemia: Stable, continued Ferrous sulfate Code status: Full code per patient DVT prophylaxis: Lovenox Stress ulcer prophylaxis: Protonix 40 daily PT/OT notes: PT/OT RLE nonweightbearing Disposition: Patient continues ad
[2023-09-14] MEDS: methocarbamoL 500 MG TABLET PO ×3 (09:42→17:41)
[2023-09-14] MEDS: METOPROLOL SUCCINATE EXT REL 50 MG TABCR PO (09:42)
[2023-09-14] MEDS: ATORVASTATIN 40 MG TABLET PO (09:42)
[2023-09-14] MEDS: FERROUS SULFATE 325 MG TABLET DR PO (09:42)
[2023-09-14] MEDS: DULoxetine HCL 20 MG CAPSULE.DR PO (09:42)
[2023-09-14] MEDS: ASPIRIN 81 MG ENTERIC TABLET PO ×2 (09:43→17:41)
[2023-09-14] MEDS: ENOXAPARIN 30 MG/0.3 ML SYRINGE SUB-Q (09:43)
--- NOTE | 2023-09-14 13:35 | WPDGIPROGNO ---
Progress Note: A&P Assessment and Plan (1) Ischemic colitis: Code(s): K55.9 - Vascular disorder of intestine, unspecified Status: Acute Assessment and Plan: bx confirmed diagnosis, no malignancy on iv abx and leukocytosis trending down tolerated more consistent diet today, no pain or emesis (2) Abnormal digestive system diagnostic imaging: Code(s): R93.3 - Abnormal findings on diagnostic imaging of other parts of digestive tract Status: Acute Assessment and Plan: ischemic colitis- improving no need to repeat colonoscopy (3) Leukocytosis: Qualifiers: Leukocytosis type: unspecified Qualified Code(s): D72.829 - Elevated white blood cell count, unspecified Code(s): D72.829 - Elevated white blood cell count, unspecified Status: Acute Assessment and Plan: on abx, here with severe colitis and sepsis wbc stable 11 (4) Sepsis: Code(s): A41.9 - Sepsis, unspecified organism Status: Acute Assessment and Plan: better (5) FELY (acute kidney injury): Code(s): N17.9 - Acute kidney failure, unspecified Status: Acute Assessment and Plan: creatinine down to 1 (6) Nausea and vomiting in adult: Code(s): R11.2 - Nausea with vomiting, unspecified Status: Acute Assessment and Plan: resolved from colitis Subjective Date/time seen: 09/14/23 13:35 Interval history: no nausea, no pain she is comfortable and in good spirits Review of Systems Review of Systems: All systems reviewed & are unremarkable except as noted in HPI and below Exam Const: General: no acute distress Other: frail elderly HENMT: Face/Nose/Sinus: Normal nares present Eyes: Sclera: sclerae normal Neck: Neck: supple Resp: Effort & Inspection: normal respiratory effort Cardio: Rate: regular rate GI: GI Palp: Yes Soft to palpation and No Tenderness to palpation present (GI) Auscultation: normal bowel sounds Skin: General skin exam: normal color Neuro: Speech: normal speech Motor exam (neuro): 5/5 motor strength present throughout Extrem: Other: boot in Rt leg Psych: Mental Status: mental status grossly normal Objective Data Vital Signs Vital Signs: Vital Signs - 24 hr 09/13/23 16:00 09/13/23 20:00 09/13/23 20:45 Temperature 97.7 F 97.8 F Pulse Rate 68 67 Respiratory Rate 18 18 Blood Pressure 145/60 H 152/78 H Pulse Oximetry 98 97 97 Oxygen Delivery Nasal Cannula Oxygen Flow Rate 2 Fraction of Inspired Oxygen 09/14/23 00:00 09/14/23 04:00 09/14/23 08:00 Temperature 97.8 F 97.9 F 98.1 F Pulse Rate 80 73 67 Respiratory Rate 20 18 16 Blood Pressure 163/71 H 154/55 H 168/59 H Pulse Oximetry 100 100 99 Oxygen Delivery Oxygen Flow Rate Fraction of Inspired Oxygen 09/14/23 09:25 09/14/23 09:42 09/14/23 09:41 Temperature Pulse Rate 87 Respiratory Rate Blood Pressure Pulse Oximetry 97 97 Oxygen Delivery Nasal Cannula Nasal Cannula Oxygen Flow Rate 2 2 Fraction of Inspired Oxygen 28 09/14/23 12:00 Temperature 97.5 F L Pulse Rate 76 Respiratory Rate 20 Blood Pressure 152/63 H Pulse Oximetry 93 Oxygen Delivery Oxygen Flow Rate Fraction of Inspired Oxygen Intake/Output Intake/Output: Intake & Output 09/11/23 09/12/23 09/13/23 09/14/23 23:59 23:59 23:59 23:59 Intake Total 1390 1200 1590 1060 Output Total 4 7 100 1 Balance 1386 1193 1490 1059 Meds/Results Medications: Active Medications Generic Name Dose Route Start Last Admin Trade Name Freq PRN Reason Stop Dose Admin Acetaminophen 1,000 mg 09/09/23 05:04 09/11/23 08:39 Acetaminophen 500 Mg Tablet PO 1,000 mg Q6H PRN Administration Pain (Scale Score 1-3) Aspirin 81 mg 09/09/23 09:00 09/14/23 09:43 Aspirin 81 Mg Enteric Tablet PO 81 mg BID DEBBIE Administration Atorvastatin Calcium 40 mg 09/09/23 09:00 09/14/23 09:42 Atorvastatin 40 Mg Tab
[2023-09-15] MEDS: PIPERACILLIN/TAZ 2.25G/NS 50ML 2.25 GM/50 ML BAG IVPB ×2 (01:04→10:44)
[2023-09-15 04:00] VITALS: BP 167/62; PULSE 74; RESP 14; TEMP 37.3; O2SAT 96
[2023-09-15] MEDS: LEVOTHYROXINE SODIUM 100 MCG TABLET PO (05:38)
[2023-09-15 06:01] LABS: Hematocrit 25.1 % (37.0-47.0); Hemoglobin 8.2 g/dL (12.0-15.0); Mean Corpuscular HGB Conc 32.7 g/dl (32-36); Mean Corpuscular Hemoglobin 26.1 pg (26-34); Mean Corpuscular Volume 79.9 fl (80-100); Mean Platelet Volume 10.5 fl (7.4-10.4); Platelet Count Result 322 k/mm3 (150-375); Red Blood Count 3.14 M/mm3 (4.2-5.4); Red Cell Distribution Width 19.5 % (11.5-14.5)
[2023-09-15 06:08] LABS: Alanine Aminotransferase 21 U/L (6-35); Albumin Level 2.7 g/dL (3.5-5.1); Alkaline Phosphatase 93 U/L (38-126); Anion Gap 4 mmol/L (4-12); Aspartate Amino Transferase 23 U/L (14-36); Bilirubin,Total 0.4 mg/dL (0.2-1.3); Blood Urea Nitrogen 9 mg/dL (7-17); Calcium 8.9 mg/dL (8.4-10.2); Carbon Dioxide 26 mmol/L (22-30); Chloride 111 mmol/L (98-107); Estimated Glomerular Filt Rate > 60; Glucose 82 mg/dL (65-110); Potassium 3.3 mmol/L (3.4-5.0); Sodium 141 mmol/L (137-145)
[2023-09-15 08:00] VITALS: BP 167/63; PULSE 68; RESP 16; TEMP 36.8; O2SAT 100
--- NOTE | 2023-09-15 09:05 | WPDGIPROGNO ---
Progress Note: A&P Assessment and Plan (1) Ischemic colitis: Code(s): K55.9 - Vascular disorder of intestine, unspecified Status: Acute Assessment and Plan: bx confirmed diagnosis, no malignancy on iv abx and leukocytosis stable at 12 tolerating diet, no pain or emesis discharge soon (2) Abnormal digestive system diagnostic imaging: Code(s): R93.3 - Abnormal findings on diagnostic imaging of other parts of digestive tract Status: Acute Assessment and Plan: ischemic colitis- improving no need to repeat colonoscopy (3) Leukocytosis: Qualifiers: Leukocytosis type: unspecified Qualified Code(s): D72.829 - Elevated white blood cell count, unspecified Code(s): D72.829 - Elevated white blood cell count, unspecified Status: Acute Assessment and Plan: on abx, here with severe colitis and sepsis wbc stable 12 (4) Sepsis: Code(s): A41.9 - Sepsis, unspecified organism Status: Acute Assessment and Plan: better (5) FELY (acute kidney injury): Code(s): N17.9 - Acute kidney failure, unspecified Status: Acute Assessment and Plan: creatinine down to 0.9 (6) Nausea and vomiting in adult: Code(s): R11.2 - Nausea with vomiting, unspecified Status: Acute Assessment and Plan: resolved from colitis Subjective Date/time seen: 09/15/23 09:05 Interval history: poor appetite but overall she is comfortable, denies any more nausea Review of Systems Review of Systems: All systems reviewed & are unremarkable except as noted in HPI and below Exam Const: General: no acute distress Other: frail elderly HENMT: Face/Nose/Sinus: Normal nares present Eyes: Sclera: sclerae normal Neck: Neck: supple Resp: Effort & Inspection: normal respiratory effort Cardio: Rate: regular rate GI: GI Palp: Yes Soft to palpation and No Tenderness to palpation present (GI) Auscultation: normal bowel sounds Skin: General skin exam: normal color Neuro: Speech: normal speech Motor exam (neuro): 5/5 motor strength present throughout Extrem: Other: boot in Rt leg Psych: Mental Status: mental status grossly normal Objective Data Vital Signs Vital Signs: Vital Signs - 24 hr 09/14/23 09:25 09/14/23 09:42 09/14/23 09:41 Temperature Pulse Rate 87 Respiratory Rate Blood Pressure Pulse Oximetry 97 97 Oxygen Delivery Nasal Cannula Nasal Cannula Oxygen Flow Rate 2 2 Fraction of Inspired Oxygen 28 09/14/23 12:00 09/14/23 16:00 09/14/23 19:29 Temperature 97.5 F L 97.7 F 98.5 F Pulse Rate 76 72 71 Respiratory Rate 20 18 16 Blood Pressure 152/63 H 157/56 H 165/61 H Pulse Oximetry 93 100 99 Oxygen Delivery Oxygen Flow Rate Fraction of Inspired Oxygen 09/14/23 20:00 09/14/23 23:11 09/15/23 04:00 Temperature 98.4 F 99.2 F Pulse Rate 73 74 Respiratory Rate 16 14 Blood Pressure 149/69 H 167/62 H Pulse Oximetry 99 96 96 Oxygen Delivery Nasal Cannula Oxygen Flow Rate 2 Fraction of Inspired Oxygen Intake/Output Intake/Output: Intake & Output 09/12/23 09/13/23 09/14/23 09/15/23 23:59 23:59 23:59 23:59 Intake Total 1200 1590 1110 100 Output Total 7 100 1 250 Balance 1193 1490 1109 -150 Meds/Results Medications: Active Medications Generic Name Dose Route Start Last Admin Trade Name Freq PRN Reason Stop Dose Admin Acetaminophen 1,000 mg 09/09/23 05:04 09/11/23 08:39 Acetaminophen 500 Mg Tablet PO 1,000 mg Q6H PRN Administration Pain (Scale Score 1-3) Amlodipine Besylate 5 mg 09/15/23 09:00 Amlodipine Besylate 5 Mg Tablet PO DAILY [facility] Aspirin 81 mg 09/09/23 09:00 09/14/23 17:41 Aspirin 81 Mg Enteric Tablet PO 81 mg BID DEBBIE Administration Atorvastatin Calcium 40 mg 09/09/23 09:00 09/14/23 09:42 Atorvastatin 40 Mg Tablet PO 40 mg DAILY DEBBIE Administration Duloxetine HCl 20 mg 09/09/23 09
[2023-09-15 09:46] VITALS: O2SAT 99
[2023-09-15] MEDS: ASPIRIN 81 MG ENTERIC TABLET PO (10:41)
[2023-09-15 10:42] VITALS: PULSE 68
[2023-09-15] MEDS: METOPROLOL SUCCINATE EXT REL 50 MG TABCR PO (10:42)
[2023-09-15] MEDS: POTASSIUM CHLORIDE 20 MEQ ER TABLET 40 MEQ PO (10:42)
[2023-09-15] MEDS: PANTOPRAZOLE 40 MG TABLET PO (10:42)
[2023-09-15] MEDS: FERROUS SULFATE 325 MG TABLET DR PO (10:42)
[2023-09-15] MEDS: amLODIPine BESYLATE 5 MG TABLET PO (10:42)
[2023-09-15] MEDS: DULoxetine HCL 20 MG CAPSULE.DR PO (10:43)
[2023-09-15] MEDS: methocarbamoL 500 MG TABLET PO ×2 (10:43→15:36)
[2023-09-15] MEDS: ENOXAPARIN 30 MG/0.3 ML SYRINGE SUB-Q (10:43)
[2023-09-15] MEDS: ATORVASTATIN 40 MG TABLET PO (10:43)
[2023-09-15 12:00] VITALS: BP 153/68; PULSE 62; RESP 18; TEMP 36.9; O2SAT 100
--- NOTE | 2023-09-15 14:36 | P.DS_ITS ---
DS: Admitting Diagnosis Discharge Date 09/15/2023 Admitting Diagnosis Ischemic colitis DS: Discharge Diagnosis Discharge Diagnosis (1) Acute respiratory failure with hypoxia: Code(s): J96.01 - Acute respiratory failure with hypoxia Status: Acute (2) Sepsis: Code(s): A41.9 - Sepsis, unspecified organism Status: Acute (3) FELY (acute kidney injury): Code(s): N17.9 - Acute kidney failure, unspecified Status: Acute (4) Acute UTI: Code(s): N39.0 - Urinary tract infection, site not specified Status: Acute (5) Colitis: Code(s): K52.9 - Noninfective gastroenteritis and colitis, unspecified Status: Acute (6) HTN (hypertension): Code(s): I10 - Essential (primary) hypertension Status: Acute (7) Elevated transaminase level: Code(s): R74.01 - Elevation of levels of liver transaminase levels Status: Acute (8) Anemia: Qualifiers: Anemia type: unspecified type Qualified Code(s): D64.9 - Anemia, unspecified Code(s): D64.9 - Anemia, unspecified Status: Acute (9) Bimalleolar fracture of right ankle: Code(s): S82.841A - Displaced bimalleolar fracture of right lower leg, initial encounter for closed fracture Status: Acute Plan Acute respiratory failure with hypoxia-RESOLVED * On arrival to the ED from [facility] SpO2 84%. Placed on 2L NC. Baseline room air. Vitals remain stable. * Chest XR: Central congestive change and possible minimal bibasilar pulmonary edema. Cardiomegaly, status post CABG, valve replacement, with pacemaker device. * Likely related to patient receiving sepsis bolus. Patients blood pressure remains stable. Given lasix 40 mg IV x1. * Monitor SpO2, wean as tolerated to maintain SpO2 > 90% * Still on 2L * 09/11 CTA No PE, clear lungs, mild dependent atelectasis * Incentive spirometry 09/14/2023: * 6-min walk study Sepsis without septic shock secondary to colitis-RESOLVED * Meets SIRS criteria: leukocytosis 24.5, hypotension 96/51, new O2 requirement, FELY * lactic acid: 0.8, however this was after receiving antibiotics and fluids * 30 mL/kg = 1911 ml. 2L NS bolus given. * suspected source: colitis * blood cultures drawn on 09/08: NGTD * UA: turbid appearance, 2+ leukocytes, negative nitrates, 3-5 RBC, >100 WBC, many squamous epithelial cells, 4+ bacteria. Possible contaminant given the squamous epithelial cells. * Urine culture 09/07 negative (FINAL) * CXR: Central congestive change and possible minimal bibasilar pulmonary edema. Cardiomegaly, status post CABG, valve replacement, with pacemaker device. * CT abdomen/pelvis: Wall thickening and mild pericolic inflammatory change of the cecum and proximal ascending colon. Diagnostic considerations include colitis versus neoplasm. Correlate clinically. Consider colonoscopy as indicated. * Monitor I&Os, vital signs, neuro status and patient is a fall risk * Monitor serum electrolytes, CBC, WBC, temperature curve and follow cultures Ischemic colitis-Improving * WBC improving (peaked at 24.5). Had a BM 09/13/2023 * GI was consulted * Colonoscopy showing ischemic colitis * Continue with Zosyn IV * Monitor for downtrending WBC * Advanced diet to full liquid * Monitor for worsening sepsis * Consult surgery if no improvement with conservative therapy * advanced diet to full liquids 09/14/2023: * Advance to diabetic diet * WBC 11.5 Bimalleolar fracture of right ankle * Previous fracture * Came from re[facility] * Patient to [facility]
--- NOTE | 2023-09-15 14:36 | PM.DS ---
DS: Admitting Diagnosis Discharge Date 09/15/2023 Admitting Diagnosis Ischemic colitis DS: Discharge Diagnosis Discharge Diagnosis (1) Acute respiratory failure with hypoxia: Code(s): J96.01 - Acute respiratory failure with hypoxia Status: Acute (2) Sepsis: Code(s): A41.9 - Sepsis, unspecified organism Status: Acute (3) FELY (acute kidney injury): Code(s): N17.9 - Acute kidney failure, unspecified Status: Acute (4) Acute UTI: Code(s): N39.0 - Urinary tract infection, site not specified Status: Acute (5) Colitis: Code(s): K52.9 - Noninfective gastroenteritis and colitis, unspecified Status: Acute (6) HTN (hypertension): Code(s): I10 - Essential (primary) hypertension Status: Acute (7) Elevated transaminase level: Code(s): R74.01 - Elevation of levels of liver transaminase levels Status: Acute (8) Anemia: Qualifiers: Anemia type: unspecified type Qualified Code(s): D64.9 - Anemia, unspecified Code(s): D64.9 - Anemia, unspecified Status: Acute (9) Bimalleolar fracture of right ankle: Code(s): S82.841A - Displaced bimalleolar fracture of right lower leg, initial encounter for closed fracture Status: Acute Plan Acute respiratory failure with hypoxia-RESOLVED On arrival to the ED from [facility] SpO2 84%. Placed on 2L NC. Baseline room air. Vitals remain stable. Chest XR: Central congestive change and possible minimal bibasilar pulmonary edema. Cardiomegaly, status post CABG, valve replacement, with pacemaker device. Likely related to patient receiving sepsis bolus. Patients blood pressure remains stable. Given lasix 40 mg IV x1. Monitor SpO2, wean as tolerated to maintain SpO2 > 90% Still on 2L 09/11 CTA No PE, clear lungs, mild dependent atelectasis Incentive spirometry 09/14/2023: 6-min walk study Sepsis without septic shock secondary to colitis-RESOLVED Meets SIRS criteria: leukocytosis 24.5, hypotension 96/51, new O2 requirement, FELY lactic acid: 0.8, however this was after receiving antibiotics and fluids 30 mL/kg = 1911 ml. 2L NS bolus given. suspected source: colitis blood cultures drawn on 09/08: NGTD UA: turbid appearance, 2+ leukocytes, negative nitrates, 3-5 RBC, >100 WBC, many squamous epithelial cells, 4+ bacteria. Possible contaminant given the squamous epithelial cells. Urine culture 09/07 negative (FINAL) CXR: Central congestive change and possible minimal bibasilar pulmonary edema. Cardiomegaly, status post CABG, valve replacement, with pacemaker device. CT abdomen/pelvis: Wall thickening and mild pericolic inflammatory change of the cecum and proximal ascending colon. Diagnostic considerations include colitis versus neoplasm. Correlate clinically. Consider colonoscopy as indicated. Monitor I&Os, vital signs, neuro status and patient is a fall risk Monitor serum electrolytes, CBC, WBC, temperature curve and follow cultures Ischemic colitis-Improving WBC improving (peaked at 24.5). Had a BM 09/13/2023 GI was consulted Colonoscopy showing ischemic colitis Continue with Zosyn IV Monitor for downtrending WBC Advanced diet to full liquid Monitor for worsening sepsis Consult surgery if no improvement with conservative therapy advanced diet to full liquids 09/14/2023: Advance to diabetic diet WBC 11.5 Bimalleolar fracture of right ankle Previous fracture Came from re[facility] Patient to remain nonweightbearing to RLE PT/OT. Worked with PT 09/12 Pain control ASA DVT prophylaxis Transaminitis-RESOLVED Trending up slowly, may be related to sepsis Will continue to monitor, check in AM No abnormal liver findings on imaging Hepatitis panel negative HX HTN: Initially hypotensive, resume home meds as tolerated Anemia: Stable, continued Ferrous sulfate Code status: Full code per patient PT/OT notes: PT/OT RLE nonweightbearing
== END 2023-09-15 16:17 | DRG 871 ==
LOC: ANHED 09-09 01:06 → ANH2MED 09-09 01:48
PROVIDERS: Internal Medicine Gastroenterology; Nurse Practitioner Family; Student in an Organized Health Care Education/Training Program; Admitting Provider Internal Medicine; Emergency Provider Emergency Medicine; Visit Provider Nurse Practitioner Family
PROC: 0DJD8ZZ Inspection of Lower Intestinal Tract, Via Natural or Artificial Opening Endoscopic (ICD-10-PCS; CPT 45378; principal; 2023-09-10 16:00)
DX: A41.9 Sepsis, unspecified organism (principal); J96.01 Acute respiratory failure with hypoxia; N17.9 Acute kidney failure, unspecified; K55.9 Vascular disorder of intestine, unspecified; K52.9 Noninfective gastroenteritis and colitis, unspecified; K63.5 Polyp of colon; K57.30 Diverticulosis of large intestine without perforation or abscess without bleeding; K64.8 Other hemorrhoids; D64.9 Anemia, unspecified; I10 Essential (primary) hypertension; R74.01 Elevation of levels of liver transaminase levels; E03.9 Hypothyroidism, unspecified; S82.841D Displaced bimalleolar fracture of right lower leg, subsequent encounter for closed fracture with routine healing; X58.XXXD Exposure to other specified factors, subsequent encounter; N28.1 Cyst of kidney, acquired; Z95.1 Presence of aortocoronary bypass graft; Z95.2 Presence of prosthetic heart valve; Z95.0 Presence of cardiac pacemaker; Z79.82 Long term (current) use of aspirin
CPT/HCPCS: 36415; 71045; 71275; 74176; 80053; 80074; 81001; 82607; 82728; 82746; 83540; 83550; 83605; 83690; 83735; 85025; 85027; 87040; 87086; 87493; 88305; 97110; 97161; 97166; 97530; 97535; 99285; A9270; G0378; J1650; J1940; J2250; J2270; J2405; J2543; J3010; J7030; J7120; Q9967